=== PATIENT | male | born 1970 | race Hispanic/Latino ===

== ENCOUNTER 2024-09-20 23:18 | Inpatient (IN) | payer OTHER, SELFPAY ==
--- NOTE | 2024-09-20 22:10 | ED.GENMED ---
History of Present Illness
General
Chief Complaint: Chest Pain
Source: patient, family (Son) and ambulance crew
Exam Limitations: none
Time Seen by Provider: 09/20/24 22:09
Nursing documentation reviewed up to this point in time: agreed with
History of Present Illness
History of Present Illness:
54-year-old male with a history of GERD, smoker, occasional alcohol use who presents to the ER via EMS for evaluation after syncopal event complaining of chest pain. Patient reports that he was taking the trash out tonight when he began to feel
dizzy and had some mild substernal chest discomfort. He says that he had a brief syncopal episode. Son called EMS and on their arrival patient was complaining of continued mild chest pain 05/15. Initial EKG was concerning for some ST changes. He
received nitroglycerin and 324 mg of aspirin. He had resolution of chest pain at that point and was transported to the hospital. Here in the ER he says he is chest pain-free and feels well. He denies any shortness of breath, dizziness, nausea,
vomiting, diaphoresis. 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
typically get chest pains). He says that he does occasionally get right shoulder pains that he has attributed to arthritis. He denies any known history of cardiac issues.
Review of Systems
Review of Systems
All Other Systems: ROS reviewed and negative except as documented in HPI and ROS
Constitutional: Denies fever
Respiratory: Denies trouble breathing
Cardiac: Reports chest pain and syncope; Denies diaphoresis or palpitations
ABD/GI: Denies abdominal pain, nausea or vomiting
: Denies flank pain
Musculoskeletal: Denies edema
Neurological: Reports dizzy; Denies headache
Phy Exam
Physical Exam
Physical Exam:
General: Awake, alert, oriented x3; no acute distress
Head: Normocephalic, atraumatic
Eyes: Conjunctiva normal, sclera anicteric
Throat: Airway intact, handling secretions
Neck: Trachea midline, no JVD
Lungs: Clear to auscultation bilaterally, no wheezing, rales, rhonchi
Heart: Regular rate and rhythm, no murmurs, gallops, or rubs
Abd: Soft, non distended, nontender
Neuro: No gross deficits
Skin: no rash
Extremities: No edema in extremities, equal pulses in all extremities
Scores
Heart Failure Risk
Heart Failure Risk Score: Not Applicable
Heart Score for Chest Pain Patients
STEMI patient?: No
History: Moderately Suspicious
ECG: Significant ST-Depression
Age: >45 - <65 years
Risk Factors: 1 or 2 Risk Factors
Troponin: </= Normal Limit
Heart Score for Chest Pain Patients: 5
Heart Score Risk: 20.3% MACE over next 6 weeks
Withdrawal Assessment of Alcohol
Withdrawal Assessment Completed?: Not applicable
Course
Orders/Labs/Results
Orders:
Orders
09/20/24 21:54
Electrocardiogram (*1) Urgent
Reason for Study: Other
Other Reason for Exam: Respiratory Distress
Cardiac Monitoring- Treatment ONCE
EKG- Treatment ONCE
IV Insert/Care/Rem.- Treatment PRN
CR Chest - 2 Views Urgent
Comment:
Reason For Exam: respiratory distress
O2 Therapy [RESP] Urgent
Titrate/Wean O2 to maintain O2 sat greater than (%): 93
Special Instructions: TO MAINTAIN CONTINUOUS O2 SATS >/= 93%
Pulse Ox/cont/shift [RESP] Urgent
Quantity: 1
Special Instructions: continuous pulse ox
09/20/24 22:04
Complete Blood Count/With Diff Urgent
Comprehensive Metabolic Panel Urgent
NT-proBNP Urgent
Troponin I Urgent
09/20/24 22:12
PTT Urgent
Prothrombin Time Urgent
09/20/24 22:19
0.9% Sodium Chloride 1000 ml [Nss] 1,000 ml IV BOLUS
09/20/24 22:44
Heparin 4,000 units IV NOW STA
Pharmacy Request to Place See Dose Instructions PO NOW STA
Discontinue all Active Warfarin orders?: Yes
Nursing to Place Non Medication Order As Directed
Physician Order: PTT 6 hours after initial start of Heparin infusion
09/20/24 22:45
Heparin 26643 Units/250 ml 25,000 units in 250 ml IV PER PROTOCOL
Weight to be used for heparin protocol in kilograms (kg):: 106
Protocol:: Cardiac Tx/Acute Coronary
PTT Goal Range to be used:: PTT 73 to 111 seconds
Order type:: Initial
INITIAL Infusion Dose (UNITS/KG/hr) & then follow protocol:: 12 units/kg/hr
Infusion Dose in UNITS/hr & then follow protocol (UNITS/hr):: 1,000
INFUSION RATE in mL/hr & then follow protocol (mL/hr):: 10
PTT less than or equal to 64 seconds:: Increase rate by 200 units/hr (+ 2 mL/hr)
PTT 64.1 to 72.9 seconds:: Increase rate by 100 units/hr (+ 1 mL/hr)
PTT 73 to 111 seconds:: Target Range. No change in rate.
PTT 111.1 to 130.9 seconds:: Decrease rate by 100 units/hr (- 1 mL/hr)
PTT 131 to 199.9 seconds:: HOLD for 1 hr. Then decrease rate by 200 units/hr (- 2 mL/hr)
PTT greater than or equal to 200 seconds:: HOLD for 2 hrs & Notify Provider. Then decrease by 200 units/hr (-
2 mL/hr)
Lab follow-up:: Each change, PTT q6h until 2 consecutive are therapeutic. Then PTT
daily.
09/20/24 23:[address] See Dose Instructions IV DIRECTED
Abnormal Lab Results
09/20/24
22:04
WBC 16.3 H 10^3/uL
(4.8-10.8)
RBC 4.56 L 10^6/uL
(4.70-6.10)
MCH 32.2 H pg
(27.0-31.0)
MPV 11.3 H fL
(7.4-10.4)
Abs Immat Gran (auto) 0.2 H 10^3/uL
(0-0.05)
Absolute Neuts (auto) 12.0 H 10^3/uL
(1.4-6.5)
Absolute Monos (auto) 1.5 H 10^3/uL
(0.1-0.6)
Immature Gran % 1.4 H %
(0-0.5)
Lymphocytes % 16.0 L %
(20.5-51.1)
Sodium 134 L mmol/L
(135-145)
Glucose 137 H mg/dl
(70-99)
AST 135 H U/L
(17-59)
ALT 102 H U/L
(0-50)
Troponin I 0.094 H* ng/ml
09/20/24 22:04
09/20/24 22:04
Vital Signs
Initial and Last Documented VS:
Initial Vital Signs
Temp Pulse Resp Pulse Ox
36.7 C 86 20 97
09/20/24 21:55 09/20/24 21:55 09/20/24 21:55 09/20/24 21:55
Last Documented Vital Signs
Temp Pulse Resp Pulse Ox
36.7 C 93 20 98
09/20/24 21:55 09/20/24 21:55 09/20/24 21:55 09/20/24 22:30
MDM/Problems Addressed
Differential Diagnosis Includes:
ACS, aortic stenosis, dysrhythmia, GERD, vasovagal episode
MDM/Problems Addressed:
54-year-old male presents to the ER for evaluation after dizziness and syncope associated with chest pain. His initial prehospital EKG was concerning for some lateral ST depressions and in fact a prehospital STEMI alert was called although on
review of EKG with interventional cardiology did not meet STEMI criteria and STEMI alert was canceled. He was given aspirin and nitroglycerin prehospital and his chest pain has since resolved. His arrival EKG significantly improved with minimal
nonspecific ST changes. Bilateral IVs placed labs sent off including a CBC and a CMP, will check troponin, chest x-ray. Patient will require admission for monitoring telemetry, trending of troponin.
Labs reviewed: CBC shows leukocytosis, CMP shows marginal transaminitis. His troponin is elevated to 0.094. Vital signs remained stable, remains chest pain-free. Will initiate heparin drip with concern for NSTEMI. Case discussed with hospitalist
for admission.
Chronic conditions affecting care:
Smoking�higher risk for heart disease
*Radiology
Radiology exam reviewed: preliminary read by ED provider
*Pulse Oximetry
SaO2: 97
Oxygen Mode of Delivery: Room air
Patient hypoxic: no (97%)
*EKG
Interpreted by ED Provider?: Yes
Heart Rate: 88
Rate: normal
Rhythm: sinus
[place]: left axis deviation
Interval: normal interval
QRS Pattern: left vent hypertrophy
Ischemia: non-specific ST changes
*Critical Care Note
Total Time (30-74mins, 75-104mins- exclusive of procedures): Not Applicable
Patient Management
Discussion with other providers: Hospitalist (Discussed with hospitalist) and Tablet Making Machine Operator (Discussed at length with interventional cardiology)
Escalation/DeEscalation of care consider admission/obs:
Admission indicated
ED Attending Note
-
Portions of this chart may have been created with voice recognition software.� Occasional wrong word or��sound alike� substitutions may have occurred due to the inherent limitations of voice recognition software.
Discharge Plan
Departure
Patient Disposition: Admit
Date of Disposition: 09/20/24
Time of Disposition: 22:47
Admit to doctor: Remigio
Presentation/result/management discussed w/ accepting MD/DO: Hospitalist
Discharge Problem:
Non-ST elevation RI (NSTEMI)
Prescriptions:
No Action
Vitamin
1 dose PO DAILY PRN (Reason: pain)
Rx Instructions:
unsure of name
Interventions
Interventions:
*Risk Screen - Suicide Last Done: 09/20/24 21:55
*General Assessment Last Done: 09/20/24 21:55
*Neglect/Abuse Screening Last Done: 09/20/24 21:55
*ED- Fall Risk Assessment Last Done: 09/20/24 21:55
*ED COVID-19 Vaccine History Last Done: 09/20/24 21:55
ED- Cardiac Assessment Last Done: 09/20/24 22:30
Discharge Date and Time
Print Language: SINHALA
[2024-09-20 22:13] LABS: Hematocrit 42.8 % (39.0-52.0); Hemoglobin 14.7 g/dL (13.0-18.0); Mean Corp Hgb Conc. 34.3 g/dL (33.0-37.0); Mean Corpuscular Volume 93.9 fL (80.0-94.0); Nucleated Red Blood Cells % 0 % (-); Platelet Count 251 10^3/uL (130-400); Red Cell Dist. Width 13.5 % (11.5-14.5)
[2024-09-20 22:15] VITALS: BP 107/67
[2024-09-20 22:31] VITALS: BP 106/77
[2024-09-20 22:31] LABS: AST (SGOT) 135 U/L (17-59); Albumin 4.1 g/dl (3.5-5.0); Alkaline Phosphatase 104 U/L (38-126); Blood Urea Nitrogen 20 mg/dl (9-20); Calcium 8.9 mg/dl (8.4-10.2); Carbon Dioxide 24 mmol/L (22-30); Chloride 105 mmol/L (98-107); Glucose 137 mg/dl (70-99); Potassium 3.9 mmol/L (3.5-5.1); Sodium 134 mmol/L (135-145); Total Protein 6.3 g/dl (6.3-8.2); eGFR > 60.00
[2024-09-20 22:41] VITALS: BMI 42.8
[2024-09-20 22:41] LABS: ALT (SGPT) 102 U/L (0-50); Troponin I 0.094 ng/ml
[2024-09-20 22:50] VITALS: BP 106/77
--- NOTE | 2024-09-20 22:52 | HPS.HSE ---
Addendum entered and electronically signed by James Flood DO 09/20/24 23:50:
Patient seen and examined independently. Agree with findings and plan as set forth by VERNELL Matute.
Patient is a 54y M with no known PMH who presents to ED for evaluation after syncopal episode at home. History obtained from patient with family serving as new accounts clerk. Patient took the trash out this afternoon. He felt lightheaded / dizzy
upon entering the house and ultimately passed out. 911 was called and patient brought to the ED for further evaluation. Patient has no known PMH - but also no regular health care. He takes a medication from [place] as needed for pain - ? name. He
does report frequent heartburn / reflux symptoms.
At the time of my examination, patient has minimal R sided chest pain. No dyspnea, nausea. Not lightheaded or dizzy at rest.
Ass:
NSTEMI
Syncope secondary to the above
Abnormal LFTs
Morbid Obesity secondary to excess calories
Tobacco Use Disorder
Plan:
Admit to IVU for further evaluation and treatment.
IV heparin infusion, ASA, etc.
NTG as needed for chest pain. Consider infusion if pain increases / persists.
Follow troponin to peak. Follow serial EKG for changes.
Cardiology consult in AM for further recommendations / probable ischemic evaluation.
Check lipids, A1C, etc.
Encourage smoking cessation.
Original Note:
Family Physician
-
Family Physician:
Chief Complaint
-
right sided chest pain
History of Present Illness
54-year-old male with a history of GERD, smoker, occasional alcohol use who presents to the ER via EMS for evaluation after syncopal event complaining of chest pain. he felt lightheaded taking trash out. he passed out briefly as soon as he got into
he house. denied hitting head on the floor but he fell backwards. he noted right sided non exertional, radiating chest pain. denied sob. denied JAVED. denied fever, chills, cough,congestion. denied abdominal pain,n,v,d. denied dysuria or hematuria.
upon arrival noted to have elevated trop. His EMS EKG was concerning for significant lateral ST depressions. He was given aspirin and nitroglycerin. started on heparin drip. admitting for further managment.
Medical History
Past Medical History
Past Medical History: Reports Other
Additional Past Medical History:
GERD
Past Surgical History: Reports Other
Additional Past Surgical History:
foot surgery
Social History
Tobacco: Smoker (3-4 cigarettes' daily)
Alcohol: Other (8 drinks (richardson) wednesday and wednesday)
Drug: None
Living: With Family
Family History
Family History: Not pertinent
Allergies / Home Medications
Allergies reflects when Allergies were last updated in [facility].
Home Medications with original date entered in [facility]
Allergy/Medication List:
Allergies
Allergy/AdvReac Type Severity Reaction Status Date / Time
No Known Allergies Allergy Verified 09/20/24 22:12
Home Medications
Vitamin 1 dose PO DAILY PRN pain 09/20/24
Review of Systems
-
Constitutional: Reports No Symptoms
EENT: Reports No Symptoms
Respiratory: Reports No Symptoms
Cardiac: Reports Chest Pain
Abdomen/GI: Reports No Symptoms
: Reports No Symptoms
Musculoskeletal: Reports No Symptoms
Skin: Reports No Symptoms
Neurological: Reports No Symptoms
Endocrine: Reports No Symptoms
Hematologic/Lymphatic: Reports No Symptoms
Psych: Reports No Symptoms
Physical Exam
Vital Signs
Vital Signs
Temp Pulse Resp BP Pulse Ox
98.0 F 93 20 106/77 98
09/20/24 21:55 09/20/24 21:55 09/20/24 21:55 09/20/24 22:50 09/20/24 22:30
Physical Exam
General: Well Developed, Well Nourished and No Apparent Distress
HEENT: NormoCephalic, Moist mucous membranes and Atraumatic
Respiratory: Clear
Cardiac: S1/S2 and Regular Rhythm; No Murmur or Rub
GI: Soft, Non Tender, Non Distended and Normal Bowel Sounds; No Organomegaly
Rectal: Deferred by Provider
Musculoskeletal: No Clubbing, No Cyanosis and No Edema
Skin: No Rash
Neuro: AO x 3 and Nonfocal/grossly intact
Psych: Calm
Laboratory Results
-
09/20/24 22:04
09/20/24 22:04
Laboratory Results
Total Bilirubin 0.6 mg/dl (0.2-1.3) 09/20/24 22:04
AST 135 U/L (17-59) H 09/20/24 22:04
ALT 102 U/L (0-50) H 09/20/24 22:04
Alkaline Phosphatase 104 U/L (38-126) 09/20/24 22:04
Troponin I 0.094 ng/ml H* 09/20/24 22:04
Data Reviewed
-
Diagnostic Radiology: Report Reviewed by me
Lab Data: Labs Reviewed by me
Impression/Plan
-
#NSTEMI
-trop 0.094, trend trop
-heparin drip continued
-asa and statin
-obtain ECHO
-keep patient NPO
-cardiology consulted
-pre hospital EKG with lateral ST depression
-ER EKG with NSR
#leukocytosis likely stress reaction
-wbc 16.3, patient is afebrile, ctm
#transaminitis likely passive
-ast 135, alt 102
-denied abdominal pain
-CTm
#DVT prophylaxis
-heparin
#CODE status
-full code
[2024-09-20] MEDS: NSS 1000 IV (22:56)
[2024-09-20 23:00] VITALS: BP 116/77
[2024-09-20 23:14] LABS: INR 1.24; PT 16.2 Sec (11.4-14.6)
[2024-09-20 23:15] LABS: APTT 22.9 Sec (23.4-35.0)
[2024-09-21] VITALS (16 sets, daily range): BP systolic 94–129; BP diastolic 60–95; BMI 37.8
[2024-09-21] MEDS: HEPARIN 4000 UNITS IV (00:14)
[2024-09-21] MEDS: HEPARIN 25000 UNITS/250 ML IV (00:15)
--- NOTE | 2024-09-21 01:00 | PTCARENOTE ---
Pt arrived to rm [id number] from ED, ambulates independently. No pain per pt. BP 97/75, HR 75 - asymptomatic. Son at bedside to assist with translating admission questions. Pt oriented to room, call verde in reach. POC reviewed with pt and son at
bedside.
[2024-09-21] MEDS: LIPITOR 40 MG PO ×2 (01:09→19:08)
[2024-09-21 01:48] LABS: Troponin I 1.340 ng/ml
--- NOTE | 2024-09-21 02:00 | PTCARENOTE ---
Pt's troponin level increased from 0.094 to 1.340, asymptomatic. MEMBERSHIP COUNSELOR Andreia notified, no further orders.
[2024-09-21 05:21] LABS: Hematocrit 41.1 % (39.0-52.0); Hemoglobin 14.2 g/dL (13.0-18.0); Mean Corp Hgb Conc. 34.5 g/dL (33.0-37.0); Mean Corpuscular Volume 95.4 fL (80.0-94.0); Platelet Count 222 10^3/uL (130-400); Red Cell Dist. Width 13.8 % (11.5-14.5)
[2024-09-21 05:32] LABS: APTT 35.0 Sec (23.4-35.0)
[2024-09-21 05:37] LABS: Troponin I 1.980 ng/ml
[2024-09-21 05:44] LABS: HDL Cholesterol 37 mg/dl; LDL Cholesterol, Calculated 101 mg/dl; Very Low Density Lipoprotein 35 mg/dl (0-30)
--- NOTE | 2024-09-21 06:00 | PTCARENOTE ---
Pt's troponin increased from 1.34 to 1.98, asymptomatic. PAWAN Boswell notified, orders placed for troponin draws at 1015 and 1615.
[2024-09-21] MEDS: LOW STRENGTH ASPIRIN 81 MG PO (07:34)
[2024-09-21] MEDS: PROTONIX 40 MG PO (07:34)
--- NOTE | 2024-09-21 07:51 | CON.CAR ---
Addendum entered and electronically signed by Bill Langford MD 09/21/24 10:12:
I saw and examined the patient.
The INTERNATIONAL MARKETING COORDINATOR's note was reviewed and I agree with the note.
54-year-old Ecuadorean-speaking male (24-year-old daughter speaks Thai well and is at bedside helping with communication) patient has a history of smoking and a family history of coronary artery disease yesterday had some heartburn symptoms which
was a mild discomfort somewhat of a pressure sensation he took some Tums initially thought there was some relief after 10 minutes then had some recurrence. He went to take out the garbage outside and became lightheaded and dizzy he sat down outside
to recover for a bit and then when he went back inside was still feeling dizzy like he might pass out he sat down on the couch symptoms did not improve so he went to get up to go to the bedroom and had a syncopal event. He woke up and had lost
control of his urine so he took a shower before the ambulance arrived. Denies having chest discomfort in the ambulance and denies having chest discomfort since arrival. Currently chest pain-free. Peak troponin 1.9. Exam notable for systolic
murmur. Echocardiogram shows normal left ventricular function and severe aortic stenosis. Suspected bicuspid valve and mean gradient of 69 mmHg. Presentation with syncope raises concern for symptomatic severe aortic stenosis. With chest
discomfort and abnormal troponin patient may also have obstructive coronary artery disease. Reviewed findings with patient and his daughter. Cardiac catheterization recommended.
- Additional recommendations based on results.
Original Note:
Consultation
Consultation Request
Date/Time Consultation Requested: 09/21/242
Date/Time Consultation Performed: 09/21/24 0750
Requesting Provider: Tran Parry
Performing Provider: Chasity MATT for Dr. Langford
Reason for Consultation: NSTEMI
Medical History
-
Chief Complaint: syncope
History of Present Illness:
54 y/o male with acid reflux on OTC medication and smoking who is here for evaluation after he had an episode of syncope yesterday. Briefly, he was laying in bed and had some 'heartburn', then realized he had to take out the trash. He went to take
out the trash and felt dizzy when he was walking in. He sat down, but then family suggested he go lay and when he got up again to go lay and started walking he lost consciousness and was incontinent of urine. EMS was alerted. He does admit that he
had the heartburn feeling during his walking. He gets heartburn daily, but mostly with spicy meals and takes an OTC antacid. He was given full dose aspirin and nitro in ER. His son, who is translating for us, reports that he had chest pain until he
fell asleep, but he woke up this AM with no CP. He is CP free at the time of my assessment. He thinks he could have been dehydrated yesterday. He does not typically see medical providers, so no other known medical history.
Social History
Tobacco: Smoker (3 cigarettes per day)
Alcohol: Other (8 coronas on Wednesday, 3 on Wednesday, doesn't drink the rest of the week)
Living: With Family
Family History
Family History: Other (Mom and dad had open heart surgeries in their 60's, details unknown.)
Allergies / Home Medications
Allergy/AdvReac Type Severity Reaction Status Date / Time
No Known Allergies Allergy Verified 09/20/24 22:12
OTC antacid- details unknown.
�Medication �Instructions �Recorded �Confirmed �Type
Vitamin 1 dose PO DAILY PRN pain 09/20/24 09/20/24 History
Review of Systems
-
History Source: Patient
All other systems: Negative unless noted
Cardiac: Chest Pain and Syncope
Neurological: Dizzy
Physical Exam
Vital Signs
Temp Pulse Resp BP Pulse Ox
97.2 F 66 16 102/68 96
09/21/24 04:43 09/21/24 04:43 09/21/24 04:43 09/21/24 04:43 09/21/24 04:43
Lab Results
09/21/24 05:02
09/20/24 22:04
Troponin I 1.980 ng/ml H* D 09/21/24 04:33
Ofx-Q-[id number] Pept 558 pg/ml 09/20/24 22:04
Physical Exam
General: Well Developed, Well Nourished and No Apparent Distress
HEENT: Normocephalic and Anicteric
Respiratory: Clear and Non Labored Respirations
Cardiac: Regular Rhythm and Murmur (III/ systolic)
Musculoskeletal: No Edema
Skin: Warm and Dry
Neuro: AO x 3
Psych: Calm
Impression / Plan
-
NSTEMI:
-this diagnosis is threat to life
-CP free at present
-Per ER notes, received full dose aspirin via EMS. Continue ASA, statin.
-continue IV heparin, which requires intensive monitoring
-obtain echo (being done now)
-trend trops to peak. Currently 1.98. EKGs with lateral ST/T wave abnormalities.
-HGBA1C is pending
-cardiac cath today, which we discussed
Syncope:
-checking echo
-follow tele
-CAD w/u as above
Dyslipidemia:
-LDL 101
-statin initiated
Smoking:
-needs education on total cessation this admit
ETOH use:
-8 beers on Wednesday, 3 on Wednesday, none the rest of the week
-would benefit from significant decrease or preferably elimination (also with abnormal LFT's and elevated triglycerides)- needs education this admit
GERD:
-PPI ordered
Data Reviewed
-
EKG: Tracing Personally Visualized and interpreted (NSR 66 BPM, IC RBBB, lateral T wave inversions)
Radiology: Report Reviewed by me (CXR: Mildly decreased lung volumes without focal airspace disease or overt pulmonary edema.)
Medical Tests (Nuc Med, Echo etc): Other (echo ordered and pending)
Labs: Labs Reviewed by me
--- NOTE | 2024-09-21 08:15 | W.PN.HOSP.TC ---
Today's Communication/Plan
-
ACS protocol. Plan for cardiac cath
Assessment / Plan
Assessment / Plan
Physical exam:
General: Acutely ill
HEENT: Normocephalic, Atraumatic and Moist Mucous Membranes
Respiratory: Clear to Auscultation; Negative Wheezes, Rales or Rhonchi
Cardiac: Regular Rhythm and S1/S2, systolic ejection murmur
GI: Soft, Nontender and Nondistended
Musculoskeletal: No Clubbing, No Cyanosis and No Edema
Neuro: Awake, Alert and Oriented
Psych: Calm
A/P:
Acute non-STEMI:
Continue heparin drip
Aspirin and statins
Troponin peaking at 1.98 so far but continue to monitor
Plan for cardiac catheterization today
Cardiology consult appreciated
Discussed with daughter at bedside
Severe arctic stenosis:
Cardiac cath
Echocardiogram with severe mean gradient 69 mmHg, normal EF 55 to 60%
Likely will need replacement
Syncope:
Concerning if related to
Cardiac monitoring
Dyslipidemia:
LDL 101
Prediabetes mellitus:
Hemoglobin A1c 5.9
Alcohol use disorder:
Monitor for signs of withdrawal but there is none so far
Elevated LFTs:
Drinks alcohol only on weekends
Trend
Will reassess if further workup required
Reactive leukocytosis:
Trend
GERD:
Started on PPI
DVT prophylaxis:
Heparin drip
CODE STATUS:
Full code
Total time spent on today's encounter was 52 minutes which included time spent in counseling the patient/family regarding diagnosis and treatment plan as listed above, goals of care, and symptom management. Case was discussed with nursing staff,
specialists, and care coordinators/case management. All labs and imaging personally reviewed by me. Remainder the time spent in detailed review of previous records, lab data, imaging, and other medical provider documentation.
Anticipated Discharge: 24 - 48 hours
Subjective/Interval History
-
Date of Service: September 21, 2024
Patient denies chest pain this morning. No shortness of breath at rest. He attributes all his exertional symptoms mainly to 'drinking red bull and heat outside'-> I explained to him the cardiac issues that we are facing.
Objective Data
-
Labs:
Laboratory Results
09/20/24 09/20/24 09/21/24
22:04 22:55 05:02
WBC 16.3 H 16.7 H
Hgb 14.7 14.2
Hct 42.8 41.1
Plt Count 251 222
PT 16.2 H
INR 1.24
APTT 22.9 L 35.0
Sodium 134 L
Potassium 3.9
Chloride 105
Carbon Dioxide 24
BUN 20
Creatinine 0.7
Glucose 137 H
Calcium 8.9
Total Bilirubin 0.6
AST 135 H
ALT 102 H
Alkaline Phosphatase 104
09/21/24 09/21/24
06:00 12:00
WBC
Hgb
Hct
Plt Count
PT
INR
APTT Cancelled Pending
Sodium
Potassium
Chloride
Carbon Dioxide
BUN
Creatinine
Glucose
Calcium
Total Bilirubin
AST
ALT
Alkaline Phosphatase
Vital Signs:
Vital Signs
Temp Pulse Resp BP Pulse Ox
97.2 F 66 16 102/68 96
09/21/24 04:43 09/21/24 04:43 09/21/24 04:43 09/21/24 04:43 09/21/24 04:43
[2024-09-21 10:04] LABS: Glycohemoglobin (HgbA1c) 5.9 % (4.0-5.6)
[2024-09-21 12:21] LABS: APTT 36.9 Sec (23.4-35.0)
[2024-09-21 12:33] LABS: Troponin I 1.340 ng/ml
--- NOTE | 2024-09-21 12:52 | CM ---
Initial assessment completed. Spoke w/ patient's son, Alexx. Patient is a 54y M with no known PMH who presents to ED for evaluation after syncopal episode at home.
Patient resides w/ his sister in a single story home, 1 step to enter. Patient is independent w/ ambulation, no device required. Independent w/ ADLs, no DME. No SNF/HC hx.
Address, point of contact verified
Patient is currently without insurance and a PCP at this time
Plan: CM will cont to follow for d/c planning
--- NOTE | 2024-09-21 15:56 | PTCARENOTE ---
Pt was brought to recovery room on stretcher, RA, tele box, Heparin Gtt at 1400 units via LH #22. Daughter and son at the bedside interpreting: pt denies chest pain. VS on monitor: HR NSR 69, BP114/79, POX 95% RA, RR 20. Pedal pulses +1's bilateral.
Normal Allens testing BL wrists. Groins shaved. Cath consent obtained by Dr Vargas. No addl IVF's or aspirin needed per Shona MACHINE BRUSH MAKER.
--- NOTE | 2024-09-21 16:08 | PTCARENOTE ---
Pt taken to cath lab radiology technician at this time. Report given to Meli QUISPE.
--- NOTE | 2024-09-21 17:03 | ITS.CL.CATH ---
Systems Engineer - Catheterization
Cardiac Catheterization
Procedure Report:
LEFT HEART CATHETERIZATION
Date of Procedure: September 21, 2024
Referring: Bill Langford MD
PROCEDURES:
1. Coronary angiogram.
2. Moderate sedation.
INDICATION: Severe bicuspid aortic stenosis
ACCESS: Right radial artery, 6Fr. sheath, under US guidance.
HEMODYNAMICS : (mmHg)
AO (s/d) : 136/97
CORONARY FINDINGS
Dominance: Right
Left Main Trunk (LMT): Large caliber vessel that gives rise to the LAD and LCx branches and is free of angiographic disease.
Left Anterior Descending Artery (LAD): Large caliber vessel that gives off 2 major diagonal branches as it courses along the anterior inter-ventricular groove before wrapping around the cardiac apex. There is mild diffuse atherosclerotic plaque.
Left Circumflex Artery (LCx): Large caliber vessel that gives off 2 major obtuse marginal (OM) branches as it courses along the atrio-ventricular (AV) groove. There is mild diffuse atherosclerotic plaque.
Right Coronary Artery (RCA): Large caliber dominant vessel that gives rise to the posterior descending artery (RPDA) and postero-lateral ventricular (RPLV) branches distally. There is mild diffuse atherosclerotic plaque.
SEDATION: 67 minutes of procedural sedation was utilized. IV Midazolam and IV Fentanyl were administered. An independent medical record clerk was present to assist with and help manage the patient's level of consciousness and physiologic status.
RADIATION SUMMARY: Fluoro Time (min): 2.3, Dose (mGy): 309.14, DAP (Gy.cm2) : 26.14
Closure Device: There were no immediate intra-procedural complications. The sheath was pulled in the builder's labourer and a vascular-band applied to the right wrist for radial artery hemostasis using the patent hemostasis technique.
CONCLUSIONS
1. No obstructive CAD.
RECOMMENDATIONS
1. Wean radial band per protocol. Monitor right hand perfusion and for bleeding from the radial site following removal of the vascular-band following trans-radial access.
2. Continue aggressive medical therapy and risk factor modification for secondary CAD prevention.
3. Hydrate with normal saline to mitigate the risk of contrast-induced acute kidney injury.
Copy to: Bill Langford MD
Gladis Vargas MD, FACC, [facility]
--- NOTE | 2024-09-21 17:54 | PTCARENOTE ---
Received pt post cath. Right radial band inflated and intact w/ pulse ox 95 % on right thumb. VSS. Pt's son at bedside interpreting for pt. Pt denies any chest pain or sob. Discussed post cath orders. Will monitor.
--- NOTE | 2024-09-21 21:25 | PTCARENOTE ---
Pt rec'd at change of shift with son at bedside. right radial band removed at 2100. site clean and dry, no ecchymosis or hematoma noted. Good radial pulse. Pt aware of limb restrictions. assisted to bathroom to void. gait steady.
[2024-09-22] VITALS (8 sets, daily range): BP systolic 84–139; BP diastolic 59–82; BMI 37.1
[2024-09-22 04:46] LABS: Hematocrit 44.4 % (39.0-52.0); Hemoglobin 14.8 g/dL (13.0-18.0); Mean Corp Hgb Conc. 33.3 g/dL (33.0-37.0); Mean Corpuscular Volume 96.1 fL (80.0-94.0); Nucleated Red Blood Cells % 0 % (-); Platelet Count 215 10^3/uL (130-400); Red Cell Dist. Width 13.9 % (11.5-14.5)
[2024-09-22 04:59] LABS: INR 1.16; PT 15.3 Sec (11.4-14.6)
[2024-09-22 05:09] LABS: ALT (SGPT) 92 U/L (0-50); AST (SGOT) 41 U/L (17-59); Albumin 3.6 g/dl (3.5-5.0); Alkaline Phosphatase 79 U/L (38-126); Blood Urea Nitrogen 24 mg/dl (9-20); Calcium 8.7 mg/dl (8.4-10.2); Carbon Dioxide 24 mmol/L (22-30); Chloride 107 mmol/L (98-107); Estimated Creatinine Clearance > 125 ml/min; Glucose 81 mg/dl (70-99); Magnesium 2.3 mg/dl (1.6-2.3); Potassium 4.3 mmol/L (3.5-5.1); Sodium 135 mmol/L (135-145); Total Protein 5.8 g/dl (6.3-8.2); eGFR > 60.00
--- NOTE | 2024-09-22 07:24 | W.PN.CD ---
Today's Communication / Plan
-
Patient presented with syncope and is noted to have severe aortic stenosis
- Information communicated to cardiothoracic surgery. Plan for CT surgery consult today
Impression / Plan
-
Severe aortic stenosis.
- Mean gradient 69
- Suspect bicuspid aortic valve
- No evidence of obstructive coronary disease by cardiac catheterization
- Information communicated to cardiothoracic surgery. Plan for CT surgery consult today
.
Chest Pain
- May be due to severe aortic stenosis also some of his symptoms could be related to GERD.
.
Troponin elevation
- Non-CA troponin elevation likely related to severe aortic stenosis and syncope
Syncope:
- In setting of severe aortic stenosis
Dyslipidemia:
-LDL 101
-statin initiated
Smoking:
- Recommends patient's quit.
GERD:
-PPI ordered
Physical Exam
Vital Signs/Labs
Vital Signs
Temp Pulse Resp BP Pulse Ox
97.9 F 54 17 111/72 97
09/22/24 03:30 09/22/24 05:30 09/22/24 03:30 09/22/24 04:22 09/22/24 03:30
09/21/24 09/22/24 09/23/24
06:59 06:59 06:59
Actual Weight 103.079 kg 101 kg
09/22/24 04:31
09/22/24 04:31
PT 15.3 Sec (11.4-14.6) H 09/22/24 04:31
INR 1.16 09/22/24 04:31
APTT Cancelled 09/21/24 18:40
Magnesium 2.3 mg/dl (1.6-2.3) 09/22/24 04:31
Triglycerides 178 mg/dl (10-149) H 09/21/24 05:02
LDL Cholesterol, Calc 101 mg/dl 09/21/24 05:02
VLDL Cholesterol, Calc 35 mg/dl (0-30) H 09/21/24 05:02
HDL Cholesterol 37 mg/dl 09/21/24 05:02
09/20/24
22:04
Gsl-S-Hjfbvntjgbf Pept 558
LAB Results
09/20/24 09/21/24 09/21/24
22:04 01:02 04:33
Troponin I 0.094 H* 1.340 H* D 1.980 H* D
09/21/24 09/21/24 09/21/24
10:45 11:46 16:15
Troponin I Cancelled 1.340 H* D Cancelled
Physical Exam
Constitutional: No acute distress
Cardiovascular: Rhythm & rate is regular
Respiratory: Lungs clear to auscul. and Crackles Absent
GI: Soft
Neuro/Psych: Alert
Data Reviewed
-
Date of Service: September 22, 2024
Medical Decision Making: External Notes
Echo: Report Reviewed by me
Medical Tests (PFT, Pathology etc): Report Reviewed by me
Labs: Labs Reviewed by me
--- NOTE | 2024-09-22 09:00 | CONSULT.CT ---
Consultation
-
Date/Time Consultation Performed: 09/22/24 0900
Requesting Provider: Bill Langford MD
Performing Provider: Martha Kern PA-C for Maxwell Ridley MD
Reason for Consultation: Aortic Stenosis
Patient History
History of Present Illness
Patient seen and examined in the presence of his son Oleksandr, who acted as legal editor.
54 y/o Georgian speaking male presented to ED via ambulance for evaluation of syncope. Pt was taking out the trash 2 nights ago and began to have pain in his chest which he attributed to heart burn. He does have a history of heartburn and frequently
uses an OTC medication. He tried taking Tums, without relief. He began to experience lightheadedness and had a syncopal episode. Did not hit his head, but was incontinent of urine. When he regained consciousness, he had complete recall of prior
events. He has not had any recurrence of chest pain since the initial episode. Pt reports increased fatigue for a few days prior to the incident, but thought it was due to the heat. He has not had prior episodes of chest pain. Denies fever, chills,
diaphoresis, cough, SOB, n/v.
In the ED, troponin was 0.094 (peaked at 1.98 yesterday morning). Echo showed EF 55-60% and severe aortic stenosis with suspected bicuspid valve. JARED 0.5cm2, with peak gradient 115mmHg and mean gradient 69mmHg. Mild aortic regurgitation. Cardiac
catheterization yesterday evening showed severe bicuspid aortic stenosis and no obstructive CAD.
Past Medical History
- HLD, but does not see a PCP regularly
- GERD
Past Surgical History
- Left lower leg surgery from trauma, has pins
Family History
Family Medical History: Other (Both parents with hx of CABG)
Social History
Alcohol: Other (8 beers on Wednesday)
Drug: None
Tobacco: Smoker (3 cigarettes daily)
Living: With Family
Employment: Employed
Allergies
Allergy/AdvReac Type Severity Reaction Status Date / Time
No Known Allergies Allergy Verified 09/20/24 22:12
Home Medications
�Medication �Instructions �Recorded �Confirmed �Type
Vitamin 1 dose PO DAILY PRN pain 09/20/24 09/20/24 History
Review of Systems
-
History Source: Patient and Family (prasad Leggett)
General: Reports Fatigue; Denies Fever or Chills
Respiratory: Denies SOB, VAN or Cough
Cardiac: Reports Chest Pain; Denies Nausea, Vomiting or Diaphoresis
Abdomen/GI: Reports Reflux; Denies Diarrhea or Constipation
: Denies No Symptoms
Musculoskeletal: Denies No Symptoms
Neurological: Reports Syncope and Dizzy
Vascular: Denies No Symptoms
Physical Exam
Vital Signs
Temp 97.8 F 09/22/24 07:50
Temp route: Oral 09/22/24 07:50
Pulse 62 09/22/24 08:15
Rhythm: Normal sinus rhythm 09/22/24 08:00
With- Bundle Branch Block Confi 09/22/24 08:00
Resp Rate 20 09/22/24 07:50
Blood pressure 103/65 09/22/24 07:50
Blood pressure extremity used: Right upper arm 09/22/24 07:50
Position: Lying 09/22/24 07:50
MAP (cuff-Ousmane Monitor) 77 09/22/24 07:50
SaO2 97 09/22/24 07:50
Nasal Cannula flow liters per minute 2 09/20/24 22:30
Oxygen Mode of Delivery Room air 09/22/24 08:00
Acceptable pain level during hospitalization? 0 09/20/24 21:55
Can the patient verbally communicate their pain? Yes 09/21/24 08:05
Pain scale ratin 09/21/24 16:57
Actual Weight 222 lb 10.67 oz 09/22/24 04:55
Body Mass Index (BMI) 37.1 09/22/24 04:55
Labs
09/22/24 04:31
09/22/24 04:31
PT 15.3 Sec (11.4-14.6) H 09/22/24 04:31
APTT Cancelled 09/21/24 18:40
Hemoglobin A1c 5.9 % (4.0-5.6) H 09/21/24 05:02
Troponin I Cancelled 09/21/24 16:15
Lzs-S-Nvcqznppeof Pept 558 pg/ml 09/20/24 22:04
Exam
General: Well Developed, Well Nourished and No Apparent Distress
HEENT: Normocephalic, Moist Mucous Membranes, Atraumatic and PERRLA
Neck: Negative JVD, Carotid Bruit or Mass
Respiratory: Clear; Negative Wheezes or Rhonchi
Cardiac: Regular Rhythm and Murmur (III/ PAWEL)
GI: Soft and Non Tender
Skin: Warm and Dry
Neuro: AO x 3
Extremities: Pulses (2+ DP/PD pulses); Negative Lower Level Edema
Assessment / Plan
-
Severe Aortic Stenosis
- good candidate for surgical AVR
- will initiate pre-operative evaluation, to include bloodwork, dental evaluation, carotid ultrasound, CTA chest, PFTs
- Plan for OR next week, pending testing results
NSTEMI
- Peak troponin 1.98
- No obstructive CAD by cath
- troponin elevation likely related to severe aortic stenosis
HLD
- LDL 101
- Started on statin
GERD
- frequent use of TUMS at home
- will start on daily PPI
Discussed with Dr. Ridley.
[2024-09-22] MEDS: LOW STRENGTH ASPIRIN 81 MG PO (09:03)
[2024-09-22] MEDS: PROTONIX 40 MG PO (09:03)
--- NOTE | 2024-09-22 10:03 | W.PN.UPDATE ---
Update Note
Progress Note Update
CARDIAC SURGERY ATTENDING:
It was my pleasure to meet with Mr. Chilango Gaston and his son and daughter at his bedside today. Full surgical consultation to follow. Briefly, he is a very pleasant 54-year-old Bahamian-speaking gentleman who presented to our institution on
09/20/2024 after becoming lightheaded/dizzy and experiencing a syncopal episode. His workup demonstrated a severe to critically narrowed aortic valve with peak/mean gradients of 115/69 mmHg respectively with a calculated JARED of 0.5. He has mild
associated aortic insufficiency. His LVEF is preserved at 55 to 60% without any regional wall motion abnormalities. He underwent cardiac catheterization on 09/21/2024 that demonstrated no obstructive CAD. He had a mild non-NC troponin elevation to
a peak of 1.98.
He will benefit from surgical aortic valve replacement. I had an initial discussion with this patient and his family who graciously assisted in translation. We reviewed his aortic valve pathology, the proposed operative intervention, the
associated operative risks (including, but not limited to, , stroke, NC, arrhythmia, PPM requirement [slightly elevated given pre-existing incomplete right bundle branch block], PNA, JESSICA/F, bleeding, and infection), discussed expected and
hospital postprocedural course, and reviewed the expected outpatient recovery. All questions were answered to the best of my ability. We discussed the natural history of structural valve deterioration and the differences between biologic and
mechanical replacements. At present, the patient is leaning towards a biologic AVR. The patient and his family are agreeable to proceed.
I have ordered a SAVR CTA chest for procedural planning, panelipse/dental eval, carotid ultrasound assessment, and standard preadmission testing including PFTs. It is my hope to proceed to the OR this coming 09/27/2024 for hopefully
minimally-invasive SAVR.
Thank you for the opportunity precipitate in the care of this kind gentleman.
Please call with any questions or concerns.
Maxwell Ridley MD
[phone]
--- NOTE | 2024-09-22 10:11 | CM ---
Reviewed chart. Mr. Quintanilla was transferred to IVU.. Met with Mr. Quintanilla and his family to review discharge plans. He states prior to admission he resdies with his parents in a one story home with two steps to enter. He states prior to admission he
was independent with ambulation and adls. He states he does not any DME in the home. He states he currently does not have any health insurance. [facility] has been consulted to assist with Medical Assistance application. Medical work-up in progress.
The discharge plan is to return home with his family when medically stable.
--- NOTE | 2024-09-22 12:14 | W.PN.HOSP.TC ---
Today's Communication/Plan
-
CT surgery eval.
Assessment / Plan
Assessment / Plan
Physical exam:
General: Acutely ill
HEENT: Normocephalic, Atraumatic and Moist Mucous Membranes
Respiratory: Clear to Auscultation; Negative Wheezes, Rales or Rhonchi
Cardiac: Regular Rhythm and S1/S2, systolic ejection murmur
GI: Soft, Nontender and Nondistended
Musculoskeletal: No Clubbing, No Cyanosis and No Edema
Neuro: Awake, Alert and Oriented
Psych: Calm
A/P:
Severe arctic stenosis:
Cardiac cath and echocardiogram reviewed
Echocardiogram with severe mean gradient 69 mmHg, normal EF 55 to 60%
Cardiothoracic surgery consult
Appreciated cardiology
Discussed with family at bedside
Syncope:
Likely related to
Cardiac monitoring
Ruled out Non-STEMI and elevated troponin related to non-ischemic myocardial injury.
Dyslipidemia:
LDL 101
Prediabetes mellitus:
Hemoglobin A1c 5.9
Alcohol use disorder:
Monitor for signs of withdrawal but there is none so far
Elevated LFTs:
Drinks alcohol only on weekends
Trend
Will reassess if further workup required
Reactive leukocytosis:
Trend
GERD:
Started on PPI
DVT prophylaxis:
Lovenox SQ
CODE STATUS:
Full code
Total time spent on today's encounter was 52 minutes which included time spent in counseling the patient/family regarding diagnosis and treatment plan as listed above, goals of care, and symptom management. Case was discussed with nursing staff,
specialists, and care coordinators/case management. All labs and imaging personally reviewed by me. Remainder the time spent in detailed review of previous records, lab data, imaging, and other medical provider documentation.
Anticipated Discharge: > 48 hours
Subjective/Interval History
-
Date of Service: September 22, 2024
Patient denies chest pain or shortness of breath today.
Objective Data
-
Labs:
Laboratory Results
09/22/24
04:31
WBC 11.6 H
Hgb 14.8
Hct 44.4
Plt Count 215
PT 15.3 H
INR 1.16
Sodium 135
Potassium 4.3
Chloride 107
Carbon Dioxide 24
BUN 24 H
Creatinine 0.7
Glucose 81
Calcium 8.7
Total Bilirubin 0.9
AST 41
ALT 92 H
Alkaline Phosphatase 79
Vital Signs:
Vital Signs
Temp Pulse Resp BP Pulse Ox
97.9 F 72 20 98/65 96
09/22/24 11:10 09/22/24 11:15 09/22/24 11:10 09/22/24 11:09 09/22/24 11:10
--- NOTE | 2024-09-22 15:57 | W.PN.UPDATE ---
Update Note
Progress Note Update
STS RISK SCORE
Procedure Type:�Isolated AVR
Perioperative Outcome Estimate %
Operative Mortality 1.31%
Morbidity & Mortality 8.02%
Stroke 0.681%
Renal Failure 0.962%
Reoperation 3.03%
Prolonged Ventilation 4.3%
Deep Sternal Wound Infection 0.202%
Long Hospital Stay (>14 days) 3.04%
Short Hospital Stay (<6 days)* 59%
Clinical Summary
Planned Surgery: Isolated AVR, Urgent, First cardiovascular surgery
Demographics: 54 year old, male, 101kg, 165cm, BMI: 37.1 kg/m�
Lab Values: Creatinine: 0.7 mg/dL, Hematocrit: 44.4%, WBC Count: 11.6 10�/�L, Platelet Count: 307863 cells/�L
Substance Abuse: Current smoker, Alcohol use: >=8 drinks/week
Risk Factors / Comorbidities: Family Hx of CAD
Cardiac Status: Acute and chronic heart failure, NYHA Class II, Ejection Fraction = 57%
Coronary Artery Disease: No coronary symptoms
Valve Disease: Aortic Stenosis, Mild AR, Mild MR, Trivial/Trace TR
[2024-09-22] MEDS: LIPITOR 40 MG PO (17:29)
[2024-09-22] MEDS: LOVENOX 40 MG SC (17:29)
--- NOTE | 2024-09-22 23:18 | PTCARENOTE ---
Patient received at change of shift sitting at the edge of the bed. Right radial puncture site MOISÉS, radial pulse palpable. Patient denies pain. Sinus rhythm on telemetry. Oxygen saturation 99% on room air. Plan of care discussed. Family at bedside.
Call verde within reach. Care ongoing.
[2024-09-23 03:25] VITALS: BP 114/63
[2024-09-23 03:30] VITALS: BMI 36.7
[2024-09-23 03:48] LABS: Hematocrit 45.6 % (39.0-52.0); Hemoglobin 15.4 g/dL (13.0-18.0); Mean Corp Hgb Conc. 33.8 g/dL (33.0-37.0); Mean Corpuscular Volume 95.4 fL (80.0-94.0); Platelet Count 213 10^3/uL (130-400); Red Cell Dist. Width 13.2 % (11.5-14.5)
[2024-09-23 03:53] LABS: INR 1.19; PT 15.4 Sec (11.4-14.6)
[2024-09-23 03:54] LABS: APTT 29.3 Sec (23.4-35.0)
[2024-09-23 04:03] LABS: ALT (SGPT) 71 U/L (0-50); AST (SGOT) 28 U/L (17-59); Albumin 3.7 g/dl (3.5-5.0); Alkaline Phosphatase 100 U/L (38-126); Blood Urea Nitrogen 18 mg/dl (9-20); Calcium 8.7 mg/dl (8.4-10.2); Carbon Dioxide 23 mmol/L (22-30); Chloride 108 mmol/L (98-107); Estimated Creatinine Clearance > 125 ml/min; Glucose 106 mg/dl (70-99); Potassium 4.3 mmol/L (3.5-5.1); Sodium 136 mmol/L (135-145); Total Protein 5.9 g/dl (6.3-8.2); eGFR > 60.00
[2024-09-23 05:16] LABS: B.E. -1.0 mmol/L; HCO3 23.5 mmol/L (21-28); O2 Saturation % 96.7 % (94-98); PCO2 38 mmHg (35-48); PO2 75 mmHg (83-108)
[2024-09-23 08:25] VITALS: BP 131/88
[2024-09-23] MEDS: LOW STRENGTH ASPIRIN 81 MG PO (09:12)
[2024-09-23] MEDS: PROTONIX 40 MG PO (09:12)
[2024-09-23 09:31] LABS: Urine Character Clear (Clear)
--- NOTE | 2024-09-23 09:34 | W.PN.CD ---
Today's Communication / Plan
-
Continue assessment for CABG AVR
Impression / Plan
-
Severe aortic stenosis.
- Mean gradient 69
- Suspect bicuspid aortic valve
- No evidence of obstructive coronary disease by cardiac catheterization
- Patient evaluated by Dr. Ridley from CT surgery. I reviewed issues with him today. Plan is for CABG and AVR next week. Patient having CT scan to further review anatomy and sizing. Also decision is being made regarding type of AVR try to take
in account all the variables including size of valves and additional planning for future procedures also patient. 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
.
Chest Pain. No obstructive coronary disease by recent catheterization. Currently chest pain-free. Would continue treatment for GERD
.
Troponin elevation
- Non-GA troponin elevation likely related to severe aortic stenosis and syncope
Syncope:
- In setting of severe aortic stenosis
Dyslipidemia:
-LDL 101
-statin initiated
Smoking:
- Recommends patient's quit.
GERD:
-PPI ordered
Physical Exam
Vital Signs/Labs
Vital Signs
Temp Pulse Resp BP Pulse Ox
98.2 F 53 18 114/63 98
09/23/24 08:21 09/23/24 06:00 09/23/24 08:21 09/23/24 03:25 09/23/24 08:21
09/22/24 09/23/24 09/24/24
06:59 06:59 06:59
Actual Weight 101 kg 100 kg
09/23/24 03:29
09/23/24 03:29
PT 15.4 Sec (11.4-14.6) H 09/23/24 03:29
INR 1.19 09/23/24 03:29
APTT 29.3 Sec (23.4-35.0) 09/23/24 03:29
Magnesium 2.3 mg/dl (1.6-2.3) 09/22/24 04:31
Triglycerides 178 mg/dl (10-149) H 09/21/24 05:02
LDL Cholesterol, Calc 101 mg/dl 09/21/24 05:02
VLDL Cholesterol, Calc 35 mg/dl (0-30) H 09/21/24 05:02
HDL Cholesterol 37 mg/dl 09/21/24 05:02
09/20/24
22:04
Ldf-W-Memflqzszup Pept 558
LAB Results
09/20/24 09/21/24 09/21/24
22:04 01:02 04:33
Troponin I 0.094 H* 1.340 H* D 1.980 H* D
09/21/24 09/21/24 09/21/24
10:45 11:46 16:15
Troponin I Cancelled 1.340 H* D Cancelled
Physical Exam
Constitutional: No acute distress
Cardiovascular: Rhythm & rate is regular
GI: Soft
Neuro/Psych: Alert and Oriented
Data Reviewed
-
Date of Service: September 23, 2024
Medical Decision Making: Reviewed Test Results
Medical Tests (PFT, Pathology etc): Discussed with Patient
[2024-09-23 09:46] LABS: Urine Squamous Cell 0-2 /LPF (Few); Urine White Cell 0-2 /HPF (0-5)
--- NOTE | 2024-09-23 10:00 | PTCARENOTE ---
received patient this am in bed, easily awaken. patient speaks minimal Polish, son and daughter at bedside helping with translation. monitor shows NSR, VSS. right radial dsg. D/I, distal pulse palpable. U/A obtained and sent to lab . PFT's are
being completed at bedside.
--- NOTE | 2024-09-23 10:16 | W.PN.HOSP.TC ---
Today's Communication/Plan
-
See plan
Assessment / Plan
Assessment / Plan
Physical exam:
General: Acutely ill
HEENT: Normocephalic, Atraumatic and Moist Mucous Membranes
Respiratory: Clear to Auscultation; Negative Wheezes, Rales or Rhonchi
Cardiac: Regular Rhythm and S1/S2, systolic ejection murmur
GI: Soft, Nontender and Nondistended
Musculoskeletal: No Clubbing, No Cyanosis and No Edema
Neuro: Awake, Alert and Oriented
Psych: Calm
A/P:
Severe arctic stenosis:
Cardiac cath and echocardiogram reviewed
Echocardiogram with severe mean gradient 69 mmHg, normal EF 55 to 60%
Cardiothoracic surgery consult
Appreciated cardiology
Discussed with family at bedside
Syncope:
Likely related to
Cardiac monitoring
Ruled out Non-STEMI and elevated troponin related to non-ischemic myocardial injury.
Dyslipidemia:
LDL 101
Prediabetes mellitus:
Hemoglobin A1c 5.9
Alcohol use disorder:
Monitor for signs of withdrawal but there is none so far
Elevated LFTs:
Drinks alcohol only on weekends
Trend
Will reassess if further workup required
Reactive leukocytosis:
Trend
GERD:
Started on PPI
DVT prophylaxis:
Lovenox SQ
CODE STATUS:
Full code
Time spent 35 minutes
Anticipated Discharge: > 48 hours
Subjective/Interval History
-
Date of Service: September 23, 2024
No chest pain or shortness of breath. Afebrile
Objective Data
-
Labs:
Laboratory Results
09/23/24 09/23/24
03:29 05:07
WBC 10.1
Hgb 15.4
Hct 45.6
Plt Count 213
PT 15.4 H
INR 1.19
APTT 29.3
HCO3 23.5
Sodium 136
Potassium 4.3
Chloride 108 H
Carbon Dioxide 23
BUN 18
Creatinine 0.7
Glucose 106 H
Calcium 8.7
Total Bilirubin 0.7
AST 28
ALT 71 H
Alkaline Phosphatase 100
Vital Signs:
Vital Signs
Temp Pulse Resp BP Pulse Ox
98.2 F 53 18 114/63 98
09/23/24 08:21 09/23/24 06:00 09/23/24 08:21 09/23/24 03:25 09/23/24 08:21
[2024-09-23 11:30] VITALS: BP 113/79
[2024-09-23 16:13] VITALS: BP 129/77
--- NOTE | 2024-09-23 16:23 | PTCARENOTE ---
patient sitting in room on his phone, voices no concerns at this time. patient already did am care and I just changed his bedding.
[2024-09-23] MEDS: LOVENOX 40 MG SC (17:54)
[2024-09-23] MEDS: LIPITOR 40 MG PO (17:55)
[2024-09-23 18:50] VITALS: BP 142/78
[2024-09-23 22:54] VITALS: BP 120/80
--- NOTE | 2024-09-23 23:28 | PTCARENOTE ---
Patient received at change of shift resting in the bed. Denies chest pain or other discomforts. Sinus rhythm on telemetry. Right radial site MOISÉS, intact, radial pulse palpable. Oxygen saturation 98% on room air. Discussed plan of care. Call verde
within reach. Care ongoing.
[2024-09-24 03:37] VITALS: BP 129/64
[2024-09-24 03:42] VITALS: BMI 36.4
[2024-09-24 04:13] LABS: Hematocrit 45.7 % (39.0-52.0); Hemoglobin 15.6 g/dL (13.0-18.0); Mean Corp Hgb Conc. 34.1 g/dL (33.0-37.0); Mean Corpuscular Volume 94.4 fL (80.0-94.0); Platelet Count 216 10^3/uL (130-400); Red Cell Dist. Width 13.1 % (11.5-14.5)
[2024-09-24 04:37] LABS: Blood Urea Nitrogen 16 mg/dl (9-20); Calcium 8.8 mg/dl (8.4-10.2); Carbon Dioxide 22 mmol/L (22-30); Chloride 107 mmol/L (98-107); Estimated Creatinine Clearance > 125 ml/min; Glucose 107 mg/dl (70-99); Potassium 4.2 mmol/L (3.5-5.1); Sodium 135 mmol/L (135-145); eGFR > 60.00
[2024-09-24 07:06] VITALS: BP 134/76
--- NOTE | 2024-09-24 07:20 | W.PN.OMFS ---
Today's Communication
-
54 year old male planned for AVR
Tooth #15 with gross decay without acute infection. Extraction indicated.
Assessment / Plan
-
54 year old male planned for AVR
Tooth #15 with gross decay without acute infection. Extraction indicated.
Subjective Data
-
Patient with no complaints. Denies oral pain, discomfort, swelling
Objective Data
-
Vitals, I&O and Lab Results:
Vital Signs
Temp Pulse Resp BP Pulse Ox
98.5 F 59 20 129/64 95
09/24/24 07:05 09/24/24 06:00 09/24/24 07:05 09/24/24 03:37 09/24/24 07:05
Intake and Output
09/23/24 09/24/24 09/25/24
06:59 06:59 06:59
Other:
Number of approximated LARGE 2 2
amounts of urine
Lab Data
09/24/24 03:41
09/24/24 03:41
Plt Count 216 10^3/uL (130-400) 09/24/24 03:41
Physical Exam
-
Awake, Alert
Gross decay of tooth #15. No evidence of acute infection. No facial swelling. No fistula present.
Data Reviewed
-
Diagnostic Radiology: Image personally reviewed and interpreted (Decay of tooth #15.) and Report reviewed by me
--- NOTE | 2024-09-24 08:29 | W.PN.CD ---
Today's Communication / Plan
-
Remains hemodynamically stable.
Continued surgical evaluation by CT surgery
Impression / Plan
-
Severe aortic stenosis.
- Mean gradient 69
- Suspect bicuspid aortic valve
- No evidence of obstructive coronary disease by cardiac catheterization
- Patient evaluated by Dr. Ridley from CT surgery. I reviewed issues with him today. Plan is for CABG and AVR next week. Patient having CT scan to further review anatomy and sizing. Also decision is being made regarding type of AVR try to take
in account all the variables including size of valves and additional planning for future procedures also patient. 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
.
Chest Pain. No obstructive coronary disease by recent catheterization. Currently chest pain-free. Would continue treatment for GERD
.
Troponin elevation
- Non-NM troponin elevation likely related to severe aortic stenosis and syncope
Syncope:
- In setting of severe aortic stenosis
Dyslipidemia:
-statin
Smoking:
- Recommends patient's quit.
GERD:
-PPI ordered
Physical Exam
Vital Signs/Labs
Vital Signs
Temp Pulse Resp BP Pulse Ox
98.5 F 59 20 129/64 95
09/24/24 07:05 09/24/24 06:00 09/24/24 07:05 09/24/24 03:37 09/24/24 07:05
09/23/24 09/24/24 09/25/24
06:59 06:59 06:59
Actual Weight 100 kg 99.2 kg
09/24/24 03:41
09/24/24 03:41
PT 15.4 Sec (11.4-14.6) H 09/23/24 03:29
INR 1.19 09/23/24 03:29
APTT 29.3 Sec (23.4-35.0) 09/23/24 03:29
Magnesium 2.3 mg/dl (1.6-2.3) 09/22/24 04:31
Triglycerides 178 mg/dl (10-149) H 09/21/24 05:02
LDL Cholesterol, Calc 101 mg/dl 09/21/24 05:02
VLDL Cholesterol, Calc 35 mg/dl (0-30) H 09/21/24 05:02
HDL Cholesterol 37 mg/dl 09/21/24 05:02
09/20/24
22:04
[id number]-[id number] Pept 558
LAB Results
09/21/24 09/21/24 09/21/24
10:45 11:46 16:15
Troponin I Cancelled 1.340 H* D Cancelled
Physical Exam
Constitutional: No acute distress
Cardiovascular: Rhythm & rate is regular and Systolic murmur present
Respiratory: Respiratory effort normal, Wheeze Absent and Rhonchi Absent
GI: Soft
Data Reviewed
-
Date of Service: September 24, 2024
Medical Decision Making: Reviewed Test Results
X-Ray/CT/US/MRI/NUC/PET: Report Reviewed by me
Medical Tests (PFT, Pathology etc): Report Reviewed by me
Labs: Labs Reviewed by me
--- NOTE | 2024-09-24 08:29 | W.PN.HOSP.TC ---
Today's Communication/Plan
-
Plan for aortic valve replacement
Assessment / Plan
Assessment / Plan
Physical exam:
General: Acutely ill
HEENT: Normocephalic, Atraumatic and Moist Mucous Membranes
Respiratory: Clear to Auscultation; Negative Wheezes, Rales or Rhonchi
Cardiac: Regular Rhythm and S1/S2, systolic ejection murmur
GI: Soft, Nontender and Nondistended
Musculoskeletal: No Clubbing, No Cyanosis and No Edema
Neuro: Awake, Alert and Oriented
Psych: Calm
A/P:
Severe arctic stenosis:
Cardiac cath and echocardiogram reviewed
Echocardiogram with severe mean gradient 69 mmHg, normal EF 55 to 60%
Cardiothoracic surgery consult
Appreciated cardiology
Discussed with family at bedside
Syncope:
Likely related to
Cardiac monitoring
Tooth decay:
Oral maxillary surgeon will do extraction of the tooth
Ruled out Non-STEMI and elevated troponin related to non-ischemic myocardial injury.
Dyslipidemia:
LDL 101
Prediabetes mellitus:
Hemoglobin A1c 5.9
Alcohol use disorder:
Monitor for signs of withdrawal but there is none so far
Elevated LFTs:
Drinks alcohol only on weekends
Trend
Will reassess if further workup required
Reactive leukocytosis:
Trend
GERD:
Started on PPI
DVT prophylaxis:
Lovenox SQ
CODE STATUS:
Full code
Time spent 35 minutes
Anticipated Discharge: > 48 hours
Subjective/Interval History
-
Date of Service: September 24, 2024
Denies any chest pain or shortness of breath. Reports some tooth decay but no pain or fevers.
Objective Data
-
Labs:
Laboratory Results
09/24/24
03:41
WBC 9.9
Hgb 15.6
Hct 45.7
Plt Count 216
Sodium 135
Potassium 4.2
Chloride 107
Carbon Dioxide 22
BUN 16
Creatinine 0.6 L
Glucose 107 H
Calcium 8.8
Vital Signs:
Vital Signs
Temp Pulse Resp BP Pulse Ox
98.5 F 59 20 129/64 95
09/24/24 07:05 09/24/24 06:00 09/24/24 07:05 09/24/24 03:37 09/24/24 07:05
[2024-09-24] MEDS: LOW STRENGTH ASPIRIN 81 MG PO (08:45)
[2024-09-24] MEDS: PROTONIX 40 MG PO (08:45)
--- NOTE | 2024-09-24 11:03 | PTCARENOTE ---
received patient this am ambulating in room, le. well. no complaints. monitor shows NSR, VSS, patients family at bedside and brought food in for him. patient is British speaking, understands some Syriac. instructed patient to call me if he needs
anything, patient verbalized understanding.
--- NOTE | 2024-09-24 11:06 | PTCARENOTE ---
patient is aware that he is NPO after MN for teeth extraction in am.
[2024-09-24 12:01] VITALS: BP 139/81
[2024-09-24 15:08] VITALS: BP 143/84
[2024-09-24] MEDS: LOVENOX 40 MG SC (17:42)
[2024-09-24] MEDS: LIPITOR 40 MG PO (17:42)
[2024-09-24 19:27] VITALS: BP 121/68
[2024-09-24 22:47] VITALS: BP 124/74
[2024-09-25 04:32] VITALS: BP 137/68
[2024-09-25 04:41] VITALS: BMI 36.2
[2024-09-25 04:59] LABS: Hematocrit 44.8 % (39.0-52.0); Hemoglobin 15.5 g/dL (13.0-18.0); Mean Corp Hgb Conc. 34.6 g/dL (33.0-37.0); Mean Corpuscular Volume 93.1 fL (80.0-94.0); Platelet Count 216 10^3/uL (130-400); Red Cell Dist. Width 13.1 % (11.5-14.5)
[2024-09-25 05:12] LABS: Blood Urea Nitrogen 17 mg/dl (9-20); Calcium 9.1 mg/dl (8.4-10.2); Carbon Dioxide 23 mmol/L (22-30); Chloride 108 mmol/L (98-107); Estimated Creatinine Clearance > 125 ml/min; Glucose 104 mg/dl (70-99); Potassium 4.4 mmol/L (3.5-5.1); Sodium 135 mmol/L (135-145); eGFR > 60.00
[2024-09-25 08:39] VITALS: BP 112/67
[2024-09-25] MEDS: PROTONIX 40 MG PO (08:50)
[2024-09-25] MEDS: LOW STRENGTH ASPIRIN 81 MG PO (08:50)
--- NOTE | 2024-09-25 09:48 | PTCARENOTE ---
received patient this am, was told by previous RN that tooth extraction was cancelled today and patient may eat . family at bedside ordering him breakfast. lab work completed and sent to lab. patient will have MRI today as ordered. patient is
Solomon Islander speaking, speaks some Iraqi, family at bedside all the time for interpretation. monitor shows NSR, VSS.
--- NOTE | 2024-09-25 10:28 | W.PN.CD ---
Today's Communication / Plan
-
For tooth extraction
W/u for AVR underway
Impression / Plan
-
Severe aortic stenosis, mean gradient 69, suspect bicuspid aortic valve
Non obstructive coronary disease noted at cath this admission
Nonischemic myocardial injury, troponin peak 1.98, related to severe aortic stenosis and syncope
Syncope, in setting of severe aortic stenosis
- Watch on tele
Dyslipidemia => statin, goal LDL will be aggressive => less than 70
Smoking, smoking cessation has been reviewed
GERD, on PPI
BMI 36
Polish speaking, family at bedside
Subjective:
No CP or dyspnea, tele quiet
Physical Exam
Vital Signs/Labs
Vital Signs
Temp Pulse Resp BP Pulse Ox
97.9 F 63 18 137/68 95
09/25/24 04:33 09/25/24 08:36 09/25/24 08:36 09/25/24 04:32 09/25/24 08:36
09/24/24 09/25/24 09/26/24
06:59 06:59 06:59
Actual Weight 99.2 kg 98.7 kg
09/25/24 04:39
09/25/24 04:39
PT 15.4 Sec (11.4-14.6) H 09/23/24 03:29
INR 1.19 09/23/24 03:29
APTT 29.3 Sec (23.4-35.0) 09/23/24 03:29
Magnesium 2.3 mg/dl (1.6-2.3) 09/22/24 04:31
Triglycerides 178 mg/dl (10-149) H 09/21/24 05:02
LDL Cholesterol, Calc 101 mg/dl 09/21/24 05:02
VLDL Cholesterol, Calc 35 mg/dl (0-30) H 09/21/24 05:02
HDL Cholesterol 37 mg/dl 09/21/24 05:02
09/20/24
22:04
[id number]-G-[id number] Pept 558
Physical Exam
Constitutional: No acute distress
EENT: Anicteric
Cardiovascular: Rhythm & rate is regular, Pedal edema is absent and Systolic murmur present (2-3/6 late peaking in aortic region)
Respiratory: Respiratory effort normal and Lungs clear to auscul.
GI: Soft and Distention absent
Neuro/Psych: Alert
Data Reviewed
-
Date of Service: September 25, 2024
--- NOTE | 2024-09-25 10:30 | W.PN.HOSP.TC ---
Today's Communication/Plan
-
see plan
Assessment / Plan
Assessment / Plan
Gen: NAD, Awake and alert
Eyes: EOMI, PERRLA, no scleral icterus.
Neck: supple.
CV: RRR, +S1/S2, 3/6 systolic murmur
Resp: CTAB, no rales, wheezes, or rhonchi.
Abd: +BS, soft, NT, ND
Skin: No rashes.
Neuro: CN 2-12 intact, non-focal.
Psych: Normal mood and affect.
Echo: EF 55-60%. Severe with mean gradient 69 mmHg. Suspected bicuspid aortic valve. Mild aortic regurgitation. Mild mitral regurgitation. No prior study available for comparison.
Cardiac cath: No obstructive CAD
Orthopantogram: Large dental caries in the left 1st maxillary molar.
Carotid U/S: Unremarkable carotid ultrasound. No significant atherosclerotic disease or areas of luminal narrowing appreciated. Antegrade flow within the vertebral arteries.
CT chest (TAVR):
1. Moderate to severe calcification in the aortic valve.
2. Mild subpleural scarring in the posterior basilar segment of the right lower lobe and lateral basilar segment of the left lower lobe.
3. Mild thyromegaly.
4. Severe diffuse hepatic steatosis.
5. 1.3 cm round arterial enhancing lesion in the medial segment of the left lobe of the liver. Diagnostic possibilities are (1) a hypervascular liver tumor or (2) an intrahepatic vascular shunt.
Syncope due to severe :
-CT surgery following with tentative plan for minimally invasive SAVR 09/27/24
-oral surgeon to extract left 1st maxillary molar tomorrow
Other problems:
Elevated troponin due to non-ischemic myocardial injury
HLD: cont statin
Prediabetes: a1c 5.9%
Alcohol use disorder: No evidence for withdrawal
Leukocytosis, reactive, resolved
GERD: cont PPI
Obesity due to excess calories
FULL/Lovenox
Anticipated Discharge: > 48 hours
Subjective/Interval History
-
Date of Service: September 25, 2024
Currently denies CP/SOB.
Objective Data
-
Labs:
Laboratory Results
09/25/24
04:39
WBC 10.1
Hgb 15.5
Hct 44.8
Plt Count 216
Sodium 135
Potassium 4.4
Chloride 108 H
Carbon Dioxide 23
BUN 17
Creatinine 0.6 L
Glucose 104 H
Calcium 9.1
Vital Signs:
Vital Signs
Temp Pulse Resp BP Pulse Ox
97.9 F 63 18 137/68 95
09/25/24 04:33 09/25/24 08:36 09/25/24 08:36 09/25/24 04:32 09/25/24 08:36
[2024-09-25 11:17] VITALS: BP 110/64
--- NOTE | 2024-09-25 11:38 | CM ---
Chart reviewed. Patient is independent of ADLS, lives with his sister and parents in a 1 [address], 2 KING, 0 DME. Patient waiting to go for an MRI. Patient going for a SAVR on 09/27. Plan is for the patient to return home with CT Transitional RN. CM
to follow
--- NOTE | 2024-09-25 14:25 | CON.GI ---
Addendum entered and electronically signed by Emily Koenig Do, MD 09/25/24 16:52:
I saw and examined the patient.
The OCCUPATIONAL THERAPIST ASSISTANT's note was reviewed and I agree with the note.
Comment: Chilango is a 54yo M with h/o ETOH use and GERD who presents with syncope. He had LHC and is undergoing AVR evaluation. GI consulted for hepatic steatosis elevated LFTs. He denies h/o liver disease in the past. Vitals reviewed exam obese
abd NTTP, NABS. Labs reviewed mild elevations in LFT. MRI reviewed with 1.1 hypervascular hepatic lesions in L liver lobe suggestive of flash filling hemangioma most likely vs HCC less likely
Impression
- 1.1cm liver lesion
MRI reviewed no LIRAD score given
Ddx is hemangioma vs HCC (less likely)
- ETOH use
- GERD
- Hepatic steatosis
- CAD
- Severe
Recommendations
- Check AFP
- Add on viral hepatitis serologies
- ETOH cessation
- Will d/w radiologist tomorrow about MRI read and LIRAD score. Given lack of cirrhosis HCC is less likely. Will determine if liver bx is indicated vs repeat serial imaging at later time
- C/w PPI
Will follow with you.
Original Note:
Consultation
-
Date/Time Consultation Requested: 09/24/24 1719
Date/Time Consultation Performed: 09/25/24 1428
Requesting Provider: VERNELL Begum
Performing Provider: Dr. David/VERNELL Mandujano
Reason for Consultation: liver lesion
Medical History
Chief Complaint / HPI
Chief Complaint: syncope, CP
History of Present Illness:
54 y/o male with PMH of GERD, tobacco use, ETOH use on the weekends presents to the ER with some substernal chest discomfort followed by syncope after taking the trash out. The patient does not follow routinely with medical providers. He was taken
to director of cardiac cath lab on 09/21/24 and found to have severe bicuspid aortic stenosis without obstructive CAD. He was evaluated by CT surgery and is undergoing evaluation for AVR. During this eval the patient had Coronary CT that showed severe diffuse hepatic
steatosis. 1.3 cm round arterial enhancing lesion in the medial segment of the left lobe of the liver. Diagnostic possibilities are (1) a hypervascular liver tumor or (2) an intrahepatic vascular shunt. We are asked to evaluate for the same prior to
planned AVR. The patient denies any hx of hepatitis or risk factors for hepatitis. He does drink ETOH on weekends approx 6-8 drinks. He does eat poorly per his son who acts as a coreroom foundry laborer at bedside. Does not take any meds or supplements at home.
No fam hx of Liver disease or cancer.
Past Medical History
Past Medical History: GERD and Hypercholesterolemia
Past Surgical History: Other (left lower leg surgery with pins)
Social History
Tobacco: Smoker
Alcohol: Occasional (drinks 6-8 on weekends)
Drug: None
Living: With Family
Employment: Employed
Family History
Family History: Other (no fam hx of liver disease, GI malignancy or IBD)
Allergies / Home Medications
Allergy/AdvReac Type Severity Reaction Status Date / Time
No Known Allergies Allergy Verified 09/20/24 22:12
�Medication �Instructions �Recorded
Vitamin 1 dose PO DAILY PRN pain 09/20/24
Review of Systems
-
All other systems: A 12 pt ROS was Negative except as stated above in HPI
Vital Signs
Temp Pulse Resp BP Pulse Ox
98 F 72 18 137/68 95
09/25/24 11:16 09/25/24 11:16 09/25/24 11:16 09/25/24 04:32 09/25/24 11:16
Physical Exam
Exam
General: No Apparent Distress
HEENT: Anicteric
Respiratory: Clear
Cardiac: Regular Rhythm and Murmur
GI: Soft, Non Tender, Non Distended and Normal Bowel Sounds
Skin: Warm
Neuro: AO x 3
Psych: Calm
Results
WBC 10.1 10^3/uL (4.8-10.8) 09/25/24 04:39
Hgb 15.5 g/dL (13.0-18.0) 09/25/24 04:39
Hct 44.8 % (39.0-52.0) 09/25/24 04:39
MCV 93.1 fL (80.0-94.0) 09/25/24 04:39
Plt Count 216 10^3/uL (130-400) 09/25/24 04:39
Absolute Neuts (auto) 7.0 10^3/uL (1.4-6.5) H 09/22/24 04:31
PT 15.4 Sec (11.4-14.6) H 09/23/24 03:29
INR 1.19 09/23/24 03:29
APTT 29.3 Sec (23.4-35.0) 09/23/24 03:29
Sodium 135 mmol/L (135-145) 09/25/24 04:39
Potassium 4.4 mmol/L (3.5-5.1) 09/25/24 04:39
Chloride 108 mmol/L (98-107) H 09/25/24 04:39
Carbon Dioxide 23 mmol/L (22-30) 09/25/24 04:39
BUN 17 mg/dl (9-20) 09/25/24 04:39
Creatinine 0.6 mg/dL (0.7-1.3) L 09/25/24 04:39
Calcium 9.1 mg/dl (8.4-10.2) 09/25/24 04:39
Total Bilirubin 0.7 mg/dl (0.2-1.3) 09/23/24 03:29
AST 28 U/L (17-59) 09/23/24 03:29
ALT 71 U/L (0-50) H 09/23/24 03:29
Alkaline Phosphatase 100 U/L (38-126) 09/23/24 03:29
Diagnostic Image Results:
Coronary CT:
IMPRESSION:
1. Moderate to severe calcification in the aortic valve.
2. Mild subpleural scarring in the posterior basilar segment of the right lower lobe and lateral basilar segment of the left lower lobe.
3. Mild thyromegaly.
4. Severe diffuse hepatic steatosis.
5. 1.3 cm round arterial enhancing lesion in the medial segment of the left lobe of the liver. Diagnostic possibilities are (1) a hypervascular liver tumor or (2) an intrahepatic vascular shunt.
CXR:
IMPRESSION:
Mildly decreased lung volumes without focal airspace disease or overt pulmonary edema
Prior GI Procedures:
EGD: never
Colonoscopy: never
Assessment / Plan
-
54 y/o male with PMH of GERD, tobacco use, ETOH use on the weekends presents to the ER with some substernal chest discomfort followed by syncope after taking the trash out. The patient does not follow routinely with medical providers. He was taken
to director of cardiac cath lab on 09/21/24 and found to have severe bicuspid aortic stenosis without obstructive CAD. He was evaluated by CT surgery and is undergoing evaluation for AVR. During this eval the patient had Coronary CT that showed severe diffuse hepatic
steatosis. 1.3 cm round arterial enhancing lesion in the medial segment of the left lobe of the liver. Diagnostic possibilities are (1) a hypervascular liver tumor or (2) an intrahepatic vascular shunt. We are asked to evaluate for the same prior to
planned AVR.
Impression:
Severe Aortic stenosis with planned AVR
1.3 cm hepatic lesion
Hepatic steatosis
Elevated ALT
PLan:
-Await MRI Abd
-Acute Hepatitis panel
-Check AFP
-Discussed with patient and son about hepatic steatosis and need to follow low fat/low glycemic index diet
-Stop ETOH
-Stop smoking
-Recommend routine GI follow up care/colonoscopy as never had one in the future.
-Further recommendations to be forthcoming
-
-
Thank you for consultation and allowing me to participate in the patient's care. Please call the office nurse practitioner GI physician during the after hours with any questions or concerns.
--- NOTE | 2024-09-25 14:26 | PTCARENOTE ---
MRI complete, patient back in room.
[2024-09-25 15:39] VITALS: BP 136/84
[2024-09-25] MEDS: LOVENOX 40 MG SC (17:58)
[2024-09-25] MEDS: LIPITOR 40 MG PO (17:58)
[2024-09-25 18:14] LABS: Hepatitis B Surface Antigen Negative (Negative)
[2024-09-25 18:21] LABS: AFP Male/Tumor Marker 5.42 ng/ml
[2024-09-25 18:32] LABS: Hepatitis C Antibody Negative (Negative)
[2024-09-25 19:18] VITALS: BP 124/82
[2024-09-25 22:33] VITALS: BP 128/81
[2024-09-26] VITALS (10 sets, daily range): BP systolic 104–139; BP diastolic 67–89; BMI 36.3
--- NOTE | 2024-09-26 05:11 | PTCARENOTE ---
Pt SB on monitor, VSS. Pt denies any pain or discomfort. NPO for tooth extraction. Pt independent in the room, call verde within reach
--- NOTE | 2024-09-26 07:33 | W.PN.CT ---
Today's Communication / Plan
-
Plan:
-Cont. current medical management per primary team
-Cont. current meds (ASA, Lipitor)
-Ongoing preop workup (for tooth extraction today @ 4pm)
-For Mini AVR by Dr. Ridley tomorrow, 09/27
-Will cont. to closely monitor
Assessment / Plan
-
Assessment:
-Severe
-Non-obstructive CAD, per Cath 09/21/24
-Non AR troponin elevation
-LVEF 60-65%
-Hyperlipidemia
-Class 2 obesity (BMI 36.3)
-GERD
-Active tobacco use (3 cigs/day)
-Poor dentition
-ETOH use
-Transaminitis
Discussed patient care with: Cardiology, Nursing, Respiratory Therapy, Pharmacy and Care Team
Subjective
-
Date of Service: September 26, 2024
No issues overnight. Denies CP/SOB
Objective Data
-
Lab Results
09/25/24 04:39
09/25/24 04:39
PT 15.4 Sec (11.4-14.6) H 09/23/24 03:29
INR 1.19 09/23/24 03:29
APTT 29.3 Sec (23.4-35.0) 09/23/24 03:29
Vital Signs
Vital Signs
Temp Pulse Resp BP Pulse Ox
97.4 F 71 18 136/78 97
09/26/24 07:22 09/26/24 07:22 09/26/24 07:22 09/26/24 07:22 09/26/24 07:22
SaO2: 97 (RA)
Physical Exam
-
General: Awake, Oriented and AOx3
Cardiovascular: Regular rate & rhythm and Murmur (3/6 systolic murmur)
Respiratory: Clear
Extremities: Other (+trace edema)
Data Reviewed
-
Lab Results: Results Reviewed
Medications: Active Meds Reviewed
Chest X-Ray: Report Reviewed and Image Reviewed
ECG: Report Reviewed and Image Reviewed
[2024-09-26] MEDS: PROTONIX 40 MG PO (08:54)
[2024-09-26] MEDS: LOW STRENGTH ASPIRIN 81 MG PO (08:54)
[2024-09-26] MEDS: FLUSH (NSS) 1 FLUSH IV (08:55)
--- NOTE | 2024-09-26 09:52 | W.PN.CD ---
Today's Communication / Plan
-
For tooth extraction
W/u for AVR underway
Impression / Plan
-
Severe aortic stenosis, mean gradient 69, suspect bicuspid aortic valve
Non obstructive coronary disease noted at cath this admission
Nonischemic myocardial injury, troponin peak 1.98, related to severe aortic stenosis and syncope
Syncope, in setting of severe aortic stenosis
- Watch on tele, so far just a few PVCs
Dyslipidemia => statin, goal LDL will be aggressive => less than 70
Smoking, smoking cessation has been reviewed
GERD, on PPI
BMI 36
GI issues, appreciate GI input:
- 1.1cm liver lesion => Ddx is hemangioma vs HCC (less likely)
- ETOH use
- GERD
- Hepatic steatosis
Bulgarian speaking, family at bedside
Subjective:
No CP or dyspnea, tele quiet
Physical Exam
Vital Signs/Labs
Vital Signs
Temp Pulse Resp BP Pulse Ox
97.4 F 71 18 136/78 97
09/26/24 07:22 09/26/24 07:22 09/26/24 07:22 09/26/24 07:22 09/26/24 07:35
09/25/24 09/26/24 09/27/24
06:59 06:59 06:59
Actual Weight 98.7 kg 98.9 kg
09/25/24 04:39
09/25/24 04:39
PT 15.4 Sec (11.4-14.6) H 09/23/24 03:29
INR 1.19 09/23/24 03:29
APTT 29.3 Sec (23.4-35.0) 09/23/24 03:29
Magnesium 2.3 mg/dl (1.6-2.3) 09/22/24 04:31
Triglycerides 178 mg/dl (10-149) H 09/21/24 05:02
LDL Cholesterol, Calc 101 mg/dl 09/21/24 05:02
VLDL Cholesterol, Calc 35 mg/dl (0-30) H 09/21/24 05:02
HDL Cholesterol 37 mg/dl 09/21/24 05:02
09/20/24
22:04
Jwp-Z-Btkbzplmbri Pept 558
Physical Exam
Constitutional: No acute distress
Cardiovascular: Rhythm & rate is regular and Systolic murmur present
Respiratory: Respiratory effort normal and Lungs clear to auscul.
GI: Soft and Distention absent
Neuro/Psych: Alert
Data Reviewed
-
Date of Service: September 26, 2024
--- NOTE | 2024-09-26 11:29 | W.PN.HOSP.TC ---
Today's Communication/Plan
-
see plan
Assessment / Plan
Assessment / Plan
Gen: NAD, Awake and alert
Eyes: EOMI, PERRLA, no scleral icterus.
Neck: supple.
CV: Remains RRR, +S1/S2, 3/6 systolic murmur
Resp: Remains CTAB, no rales, wheezes, or rhonchi.
Abd: +BS, soft, NT, ND
Skin: No rashes.
Neuro: Remains CN 2-12 intact, non-focal.
Psych: Normal mood and affect.
Echo: EF 55-60%. Severe with mean gradient 69 mmHg. Suspected bicuspid aortic valve. Mild aortic regurgitation. Mild mitral regurgitation. No prior study available for comparison.
Cardiac cath: No obstructive CAD
Orthopantogram: Large dental caries in the left 1st maxillary molar.
Carotid U/S: Unremarkable carotid ultrasound. No significant atherosclerotic disease or areas of luminal narrowing appreciated. Antegrade flow within the vertebral arteries.
CT chest (TAVR):
1. Moderate to severe calcification in the aortic valve.
2. Mild subpleural scarring in the posterior basilar segment of the right lower lobe and lateral basilar segment of the left lower lobe.
3. Mild thyromegaly.
4. Severe diffuse hepatic steatosis.
5. 1.3 cm round arterial enhancing lesion in the medial segment of the left lobe of the liver. Diagnostic possibilities are (1) a hypervascular liver tumor or (2) an intrahepatic vascular shunt.
Syncope due to severe :
-CT surgery following with tentative plan for minimally invasive SAVR 09/27/24
-oral surgeon to extract left 1st maxillary molar today
Other problems:
Elevated troponin due to non-ischemic myocardial injury
HLD: cont statin
Prediabetes: a1c 5.9%
Alcohol use disorder: No evidence for withdrawal
Leukocytosis, reactive, resolved
GERD: cont PPI
Obesity due to excess calories
FULL/Lovenox
Anticipated Discharge: > 48 hours
Subjective/Interval History
-
Date of Service: September 26, 2024
Denies chest pain or shortness of breath.
Objective Data
-
Vital Signs:
Vital Signs
Temp Pulse Resp BP Pulse Ox
97.4 F 71 18 136/78 97
09/26/24 07:22 09/26/24 07:22 09/26/24 07:22 09/26/24 07:22 09/26/24 07:35
--- NOTE | 2024-09-26 11:34 | CM ---
Chart reviewed. Patient is independent of ADLS, lives with his sister and parents in a 1 STH, 2 KING, 0 DME. Reviewed preoperative and postoperative instructions and restrictions, along with showering guidelines. Patient is agreeable to a home
visit by CT Transitional RN. Gave patient a Cardiac Surgery Book. Patient's daughter at bedside to translate. Plan is for the patient to return home with CT Transitional RN. CM to follow
[2024-09-26 14:04] LABS: CEA 1.15 ng/ml
--- NOTE | 2024-09-26 14:27 | W.PN.UPDATE ---
Addendum entered and electronically signed by Maxwell Ridley MD 09/26/24 15:58:
UPDATE:
I spoke with patient and his family again after confirming monthly self-pay cost of warfarin. We rediscussed the characteristics, benefits, and drawbacks of mechanical vs. biologic valve replacements. The patient desires a mechanical valve
replacement. Our conversations were aided with photographic restorer [id number].
Thank you,
Maxwell Ridley M.D.
Original Note:
Update Note
Progress Note Update
CARDIAC SURGERY ATTENDING:
I had another long conversation with Mr. Chilango Gaston, this time with the aid of a photographic restorer to go over the complete details and risks of his planned AVR. It is my hope to accomplish this via a minimally invasive upper 'J type'
hemisternotomy. We discussed the possibility that an open approach may be required if surgical visualization is less than ideal. I also plan to perform concurrent exclusion of his left atrial appendage if this structure is surgically accessible.
I had a very long discussion with him and his family regarding valve choice. We discussed the differences between mechanical and biologic valve replacements. Initially, the patient had been leaning towards a biologic replacement. On further
discussion, the patient chose a mechanical aortic valve prosthesis. We reviewed the details of the operation, the associated periprocedural risks (including, but not limited to, , stroke, CO, arrhythmia, PPM requirement, PNA, JESSICA/F, bleeding,
and infection). We discussed the expected in-hospital postprocedural course and reviewed the expected outpatient recovery. All questions were answered to the best of my abilities. The patient was agreeable to proceed. Informed consent was
obtained.
I was subsequently contacted by the patient's nurse via [employer] who stated that the patient's son had reached out stating that his father wanted a biologic prosthesis instead. The patient's nurse currently confirmed this with the aid of a [place]
billing and insurance coordinator. His concern stems around the cost of Coumadin, 'because the medication is too expensive and would cost him $700 per month.' I will respeak with the patient regarding valve choice this afternoon.
Thank you.
Maxwell Ridley MD
[phone]
--- NOTE | 2024-09-26 16:25 | OR.RPT ---
Operative Report
Operative Report
Patient: Chilango Gaston
: 12:24:1969

Operative Date:09/26/2024 at 4:00pm
Surgeon: Bobby Lopez MD, DDS
Preoperative Diagnosis: Carious Tooth #15
Postoperative Diagnosis: Carious Tooth #15
Operation Performed: Surgical Extraction of Tooth #15
HPI: 54 year old male with severe planned for AVR requiring dental clearance. Panoramic x-ray and physical examination demonstrate a grossly carious tooth #15 requiring extraction.
Operative Report: The patient was identified in preoperative holding and written consetn was obtained. The patient was brought to the OR and transferred to the OR bed.
Time out was performed with confirmation of surgical site. Local anesthesia, 2% Lidocaine with Epi and 0.5% Marcaine were administered in at the planned surgical site. Tooth #15 was extracted surgically with elevator and forcep without
complications. The extraction socket was debrided and thoroughly irrigated. Gel-foam was packed into the site and the site was closed with 3-0 Chromic gut suture.
The patient tolerated the procedure well and was transferred to the PACU for recovery and return to the floor.
Anesthesia: MAC
EBL: 3cc
Complications: None
Disposition: Return to floor. Patient is clear from a dental perspective for planned AVR.
--- NOTE | 2024-09-26 17:30 | PTCARENOTE ---
Received the patient from PACU post tooth extraction. The patient is aao, vital signs are stable. At his extraction site (#15 left upper), sutures are visible with no bleeding noted. He has no complains of pain.
[2024-09-26] MEDS: LOVENOX 40 MG SC (18:29)
[2024-09-26] MEDS: LIPITOR 40 MG PO (18:29)
--- NOTE | 2024-09-26 19:23 | W.PN.GI.CBS2 ---
Today's Communication / Plan
-
-- nothing to do inpatient
-- will need outpatient discussion of his hepatic lesion after tumor board discussion.
-- will sign off for now and get back to patient as an outpatient.
Assessment / Plan
-
54 y/o male with PMH of GERD, tobacco use, ETOH use on the weekends presents to the ER with some substernal chest discomfort followed by syncope after taking the trash out. The patient does not follow routinely with medical providers. He was taken
to manager labor relations on 09/21/24 and found to have severe bicuspid aortic stenosis without obstructive CAD. He was evaluated by CT surgery and is undergoing evaluation for AVR. During this eval the patient had Coronary CT that showed severe diffuse hepatic
steatosis. 1.3 cm round arterial enhancing lesion in the medial segment of the left lobe of the liver. Diagnostic possibilities are (1) a hypervascular liver tumor or (2) an intrahepatic vascular shunt. We are asked to evaluate for the same prior to
planned AVR.
Impression:
Severe Aortic stenosis with planned AVR
1.3 cm hepatic lesion
Hepatic steatosis
Elevated ALT
MRI 09/25/24: There is no evidence for nodularity of the liver contour or fibrosis in the liver to suggest the presence of hepatic cirrhosis.
There is an 8.7 x 1.1 x 1.1 cm circumscribed lesion in the medial segment of the left lobe of the liver which demonstrates non-rim arterial phase hyperenhancement and nonperipheral 'washout.' The lesion does not appear to have an enhancing 'capsule.'
If there is known hepatic cirrhosis or chronic HPV infection, this lesion would categorize as LI-RADS 5.
-Acute Hepatitis panel negative
-AFP and CEA are normal
- CAP 19-9 is pending
-Discussed with patient and son about hepatic steatosis and need to follow low fat/low glycemic index diet and no alcohol
-Stop ETOH
-Stop smoking
-Recommend routine GI follow up care/colonoscopy as never had one
I discussed his hepatic finding with hepatology, Dr. Sheppard, at [place] who will present his MRI findings at tumor board.
We will let the patient know the results after the read
This should not interfere with his cardiac surgery.
Subjective
Subjective
Date of Service: September 26, 2024
no complaints
Objective
Data Reviewed
Laboratory Data:
Laboratory Results
09/25/24 04:39
09/25/24 04:39
Laboratory Results
PT 15.4 Sec (11.4-14.6) H 09/23/24 03:29
INR 1.19 09/23/24 03:29
APTT 29.3 Sec (23.4-35.0) 09/23/24 03:29
Magnesium 2.3 mg/dl (1.6-2.3) 09/22/24 04:31
Total Bilirubin 0.7 mg/dl (0.2-1.3) 09/23/24 03:29
AST 28 U/L (17-59) 09/23/24 03:29
ALT 71 U/L (0-50) H 09/23/24 03:29
Alkaline Phosphatase 100 U/L (38-126) 09/23/24 03:29
Vital Signs and I&O:
Vital Signs
Temp Pulse Resp BP Pulse Ox
97.9 F 70 20 126/85 97
09/26/24 19:00 09/26/24 17:00 09/26/24 19:00 09/26/24 17:00 09/26/24 19:00
Physical Exam
Physical Exam
HEENT: Anicteric
GI: Soft, Non Distended and Non Tender
Neuro: Non Focal
[2024-09-26] MEDS: TYLENOL 650 MG PO (21:12)
[2024-09-27] VITALS (10 sets, daily range): BP systolic 99–125; BP diastolic 61–89; BMI 35.7
--- NOTE | 2024-09-27 00:16 | PTCARENOTE ---
Tele monitor shows SR w/ PVCs. VSS. Pt c/o mouth pain d/t recent tooth extraction. PRN Tylenol administered at 21:12. 1st round of prep completed. Pt clipped and showered, Nik OROZCO at bedside and approved clippings. Bead Preparer provided, and
instructed pt to remain NPO at midnight. POC ongoing. Call verde within reach.
[2024-09-27 05:08] LABS: Hematocrit 44.8 % (39.0-52.0); Hemoglobin 15.2 g/dL (13.0-18.0); Mean Corp Hgb Conc. 33.9 g/dL (33.0-37.0); Mean Corpuscular Volume 93.1 fL (80.0-94.0); Platelet Count 222 10^3/uL (130-400); Red Cell Dist. Width 12.9 % (11.5-14.5)
[2024-09-27 05:35] LABS: ALT (SGPT) 49 U/L (0-50); AST (SGOT) 25 U/L (17-59); Albumin 4.0 g/dl (3.5-5.0); Alkaline Phosphatase 110 U/L (38-126); Blood Urea Nitrogen 18 mg/dl (9-20); Calcium 8.8 mg/dl (8.4-10.2); Carbon Dioxide 24 mmol/L (22-30); Chloride 106 mmol/L (98-107); Estimated Creatinine Clearance > 125 ml/min; Glucose 112 mg/dl (70-99); Magnesium 2.1 mg/dl (1.6-2.3); Potassium 4.2 mmol/L (3.5-5.1); Sodium 136 mmol/L (135-145); Total Protein 6.2 g/dl (6.3-8.2); eGFR > 60.00
[2024-09-27] MEDS: PROTONIX 40 MG PO (05:42)
[2024-09-27] MEDS: LOPRESSOR 25 MG PO (05:42)
[2024-09-27] MEDS: MAGNESIUM OXIDE 500 MG PO (05:42)
[2024-09-27] MEDS: BACTROBAN 2% OINTMENT 1 APPLIC NASAL ×2 (05:43→20:50)
--- NOTE | 2024-09-27 07:06 | PTCARENOTE ---
Personal belongings sent to room 2267.
[2024-09-27 07:21] LABS: ACT+ - POC 153 Seconds (82-134)
[2024-09-27 07:41] LABS: Urine Character Clear (Clear)
[2024-09-27 09:30] LABS: B.E. - POC -1.9 mmol/L; Glucose - POC 115 mg/dl (70-99); HCO3 - POC 23 mmol/L (21-28); Hematocrit - POC 40 % PCV (42-52); Hemodilution- POC No; Hemoglobin Calculated - POC 13.4; Ionized Calcium - POC 1.09 mmol/L (1.15-1.33); Lactate - POC 1.05 mmol/L (0.36-0.75); O2 Saturation %Calculated-POC 99.9 % (94-98); PCO2 - POC 38 mmHg (35-48); PO2 - POC 254 mmHg (83-108); POC Comment CPB; Potassium - POC 3.7 mmol/L (3.5-5.1); Sodium - POC 139 mmol/L (136-145); Specimen Type - POC Arterial; pH - POC 7.39 (7.35-7.45)
[2024-09-27 09:42] LABS: ACT+ - POC 641 Seconds (82-134)
[2024-09-27 09:59] LABS: B.E. - POC 3.1 mmol/L; Glucose - POC 138 mg/dl (70-99); HCO3 - POC 28 mmol/L (21-28); Hematocrit - POC 36 % PCV (42-52); Hemodilution- POC Yes; Hemoglobin Calculated - POC 12.1; Ionized Calcium - POC 0.99 mmol/L (1.15-1.33); Lactate - POC 1.40 mmol/L (0.36-0.75); O2 Saturation %Calculated-POC 100.0 % (94-98); PCO2 - POC 41 mmHg (35-48); PO2 - POC 520 mmHg (83-108); POC Comment CPB; Potassium - POC 5.6 mmol/L (3.5-5.1); Sodium - POC 135 mmol/L (136-145); Specimen Type - POC Arterial; pH - POC 7.44 (7.35-7.45)
[2024-09-27 10:12] LABS: ACT+ - POC 572 Seconds (82-134)
[2024-09-27 10:27] LABS: B.E. - POC -0.7 mmol/L; Glucose - POC 146 mg/dl (70-99); HCO3 - POC 24 mmol/L (21-28); Hematocrit - POC 37 % PCV (42-52); Hemodilution- POC Yes; Hemoglobin Calculated - POC 12.6; Ionized Calcium - POC 1.00 mmol/L (1.15-1.33); Lactate - POC 1.57 mmol/L (0.36-0.75); O2 Saturation %Calculated-POC 99.9 % (94-98); PCO2 - POC 40 mmHg (35-48); PO2 - POC 346 mmHg (83-108); POC Comment CPB; Potassium - POC 5.9 mmol/L (3.5-5.1); Sodium - POC 138 mmol/L (136-145); Specimen Type - POC Arterial; pH - POC 7.39 (7.35-7.45)
[2024-09-27 10:36] LABS: ACT+ - POC 575 Seconds (82-134)
[2024-09-27 10:48] LABS: B.E. - POC -0.2 mmol/L; Glucose - POC 142 mg/dl (70-99); HCO3 - POC 25 mmol/L (21-28); Hematocrit - POC 37 % PCV (42-52); Hemodilution- POC Yes; Hemoglobin Calculated - POC 12.6; Ionized Calcium - POC 1.01 mmol/L (1.15-1.33); Lactate - POC 1.01 mmol/L (0.36-0.75); O2 Saturation %Calculated-POC 100.0 % (94-98); PCO2 - POC 40 mmHg (35-48); PO2 - POC 403 mmHg (83-108); POC Comment CPB; Potassium - POC 4.9 mmol/L (3.5-5.1); Sodium - POC 142 mmol/L (136-145); Specimen Type - POC Arterial; pH - POC 7.40 (7.35-7.45)
--- NOTE | 2024-09-27 10:50 | CM ---
Patient in OR today for CT Surgery.
Reviewed initial assessment. Patient is independent of ADLS, lives with his sister and parents in a 1 [address], 2 KING, 0 DME.
Anticipated DC plan is for home w/ CT Transitional Care RN.
CM to follow.
[2024-09-27 10:55] LABS: ACT+ - POC 504 Seconds (82-134)
[2024-09-27 11:11] LABS: ACT+ - POC 609 Seconds (82-134)
[2024-09-27 11:57] LABS: ACT+ - POC 153 Seconds (82-134)
--- NOTE | 2024-09-27 12:01 | CON.INTV ---
Consultation
Consultation Request
Date/Time Consultation Requested: 09/27/2024 - 1143
Date/Time Consultation Performed: 09/27/2024 - 1199
Requesting Provider: Lolis Chanel NP
Performing Provider: Dr. Jiménez
Reason for Consultation: s/p SAVR
Medical History
-
Chief Complaint: Syncopal episode and chest pain
History of Present Illness:
54-year-old male active tobacco smoker with GERD and family history of CAD who presents with syncopal episode and chest pain. Patient was taking out the trash and felt dizzy, and when he came inside he went to go lay down when he lost consciousness
and was incontinent of urine. EMS called and patient brought here to the hospital for further evaluation. Troponin was elevated at 0.09 for which increased to a peak of 1.98 on 09/21. He was given a bolus of NS 0.0% x 1 L in the ER. Heparin drip
started in addition to aspirin + statin. Cardiology consulted, he underwent echo on 09/21 showing preserved LVEF at 55 to 60% with severe aortic stenosis with mean gradient of 69 mmHg with a suspected bicuspid aortic valve. He underwent left heart
catheterization on 09/21, showing no obstructive CAD. Cardiac surgery was consulted for aortic valve replacement. Spirometry performed on 09/23 which was normal. Patient had elevated LFTs and MRI abdomen showed a 1.1 cm liver lesion, with GI
consulted who thought it was due to hemangioma versus HCC (less likely). AFP and CEA were both WNL. Patient did require dental clearance for his AVR, and on 09/26 he underwent surgical extraction of tooth #15. Patient was consented for surgical
aortic valve replacement, which the patient agreed to. Today, he underwent upper 'J-type' hemisternotomy with AVR (#21 on�X mechanical). There were no complications, and he was transferred to the CVICU postoperatively for further care.
[facility] [employer] services consulted for additional management/recommendations.
When I saw the patient, he was resting in bed, intubated on SIMV at 16/500/40%/5, with PSV: 5, PIP 27 cmH2O, VTe 525 cc and breathing at 16 breaths/min. Heart rate 60, BP via A-line: 109/64, BP via NIBP: 161, PAP 34/20, CO/CI: 3.72/1.82,
respectively. SpO2: 99%. Mediastinal chest tubes x [address] Levophed at 2 mcg/min currently infusing in addition to insulin drip at 1 unit/hr and Precedex at 0.5 mcg/kg/hr.
PMHx: Tobacco smoke, family history of CAD, GERD
PSHx: Left lower leg surgery with pins from trauma
Past Medical History
Past Medical History: Other (Above as per HPI)
Past Surgical History: Other (Above as per HPI)
Social History
Tobacco: Smoker (3 cigarettes daily)
Alcohol: Occasional (8 beers on Wednesday)
Drug: None
Living: With Family
Employment: Employed
Family History
Family History: CAD (Mother + father (both had open heart surgeries in their 60s))
Allergies / Home Medications
Allergies
Allergy/AdvReac Type Severity Reaction Status Date / Time
No Known Allergies Allergy Verified 09/20/24 22:12
Home Medications
�Medication �Instructions �Recorded �Confirmed �Last Taken �Type
Vitamin 1 dose PO DAILY PRN pain 09/20/24 09/20/24 Unknown History
Review of Systems
-
Unable to Obtain full review of systems at this time due to: Patient Intubation
Vitals / Labs / Diagnostic Testing
Vital Signs
Temp Pulse Resp BP Pulse Ox
98.6 F 71 20 125/89 95
09/27/24 04:58 09/27/24 05:42 09/27/24 04:58 09/27/24 05:42 09/27/24 04:58
Diagnostic Testing:
Physical Exam
-
HEENT: Normocephalic, Anicteric and Other (ETT in place)
Cardiovascular: S1/S2 and Peripheral Edema (negative)
Respiratory: Wheeze (negative), Rales (negative), Rhonchi (negative), Non-Labored Respirations, Other (Mechanical breath sounds heard bilaterally) and Other (Mediastinal chest tubes x 2)
GI: Soft, Non Distended, Non Tender and Normal Bowel Sounds
Neurology: Tremors (negative) and Other (Sedated)
Skin: Warm and Dry
General: Respiratory Distress (negative), Comfortable, Fever (negative) and Chills (negative)
Assessment
-
Assessment: 54-year-old male active tobacco smoker with GERD and family history of CAD who presents with syncopal episode and chest pain. Patient was taking out the trash and felt dizzy, and when he came inside he went to go lay down when he lost
consciousness and was incontinent of urine. EMS called and patient brought here to the hospital for further evaluation. Troponin was elevated at 0.09 for which increased to a peak of 1.98 on 09/21. He was given a bolus of NS 0.0% x 1 L in the ER.
Heparin drip started in addition to aspirin + statin. Cardiology consulted, he underwent echo on 09/21 showing preserved LVEF at 55 to 60% with severe aortic stenosis with mean gradient of 69 mmHg with a suspected bicuspid aortic valve. He
underwent left heart catheterization on 09/21, showing no obstructive CAD. Cardiac surgery was consulted for aortic valve replacement. Spirometry performed on 09/23 which was normal. Patient had elevated LFTs and MRI abdomen showed a 1.1 cm liver
lesion, with GI consulted who thought it was due to hemangioma versus HCC (less likely). AFP and CEA were both WNL. Patient did require dental clearance for his AVR, and on 09/26 he underwent surgical extraction of tooth #15. Patient was consented
for surgical aortic valve replacement, which the patient agreed to. On 09/27/2024, he underwent upper 'J-type' hemisternotomy with AVR (#21 on�X mechanical). There were no complications, and he was transferred to the CVICU postoperatively for
further care. [employer] services consulted for additional management/recommendations.
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
Impression:
#Severe to critical aortic stenosis with bicuspid aortic valve s/p AVR (#21 on�X mechanical) � POD #0
#Acute anemia due to above
#Hyperglycemia (mild)
#Syncopal episode likely related to his severe�critical aortic stenosis with bicuspid aortic valve morphology
#Elevated troponin likely due to type II IA with demand ischemia
#Dyslipidemia
#Tobacco use disorder
#GERD
Plan:
Ventilator settings reviewed
FiO2 will be weaned to maintain SpO2 >90-94%
Minute ventilation will be adjusted
Arterial blood gases will be monitored
Spontaneous breathing trial will be attempted with hopeful extubation after anesthesia/sedation wear off
prn nebulized bronchodilators - not currently bronchospastic
Pulmonary artery catheter parameters will be followed
Pressors/antihypertensive/inotropes/diuretics will be provided as needed
Maintain MAP>65
Replete electrolytes with K>4, Mg>2
Of note, CA 19�9 antigen is pending and should be followed up
Monitor chest tube output (mediastinal chest tubes x 2)
Monitor hemoglobin
Monitor platelet count and coags
Transfuse blood products as needed to maintain Hb>7g/dL, plt>50k (given post-operative status)
CT surgery managing chest tubes
Monitor blood sugar to maintain euglycemia with goal BG 110-140
Insulin drip per protocol
Aspiration precautions
VAP prevention protocol
DVT prophylaxis
Early nutrition
Early mobilization
Critical care statement: A total of 41 minutes of critical care time was provided for this patient today. This includes management of ventilator, spontaneous breathing trial, arterial blood gases, pressors, of unstable vital signs, evaluation of the
patient at bedside, reviewing the patient's pertinent medical records including radiographs, microbiology, laboratory evaluations, and discussion with primary team and critical care nursing.
[2024-09-27] MEDS: LOW STRENGTH ASPIRIN PO (12:22)
[2024-09-27] MEDS: PROTONIX PO (12:23)
--- NOTE | 2024-09-27 12:24 | W.CVOR.SURPR ---
CVOR Surgeon Immed Pre Op
-
I have examined this patient prior to performance of the scheduled procedure.
The patient's condition is unchanged from the time of the dictated/written History and
Physical and the patient is able to undergo the scheduled procedure.
--- NOTE | 2024-09-27 12:24 | W.IMMPOSTOP ---
Addendum entered and electronically signed by Maxwell Ridley MD 09/27/24 13:11:
[id number]
Original Note:
Surgical Immed Post Op Note
-
CARDIAC SURGERY OPERATIVE NOTE:
Preoperative Dx:
[id number] (P/M: 115/69mmHg, JARED 0.5)
Suspect BAV
Postoperative Dx:
Same
Anders TYPE 1 BAV
Procedures:
1) Upper 'J-type' hemisternotomy out R 3rd ICS
2) Open exposure of R CFV
3) AVR (#21 On-X mechanical)
4) Sternal closure w/ wires/plate
Surgeon:
Maxwell Ridley M.D.
Assistants:
Ml Parekh P.A.-C.; open exposure of R CFV; assistant manager throughout; [id number] sternotomy closure
Bonita Kinney P.A.-C.; assistant terminal manager during sternotomy
Martha Ellison P.A.-C.; closure of R CFV exposure
Anesthesia:
Jose Luis Lopez M.D. and Dany ToddN.A.
Perfusion:
Taylor Segovia, C.C.P.; CPB 105min, XC: 83min
Findings:
Severely calcified Anders TYPE 1 BAV w/ fusion of LCC and RCC and bulk calcifications on ALL leaflets w/ significant circumferential annular extension.
#21 On-X valve placed w/ 13 interrupted, pledgetted valve sutures
LM and RM visualized >1cm above annulus
Post-SHANNAN: normal biventricular function, well-seated AVR w/ PVL/AI (washing jets); mean gradients 11-14mmHg
Implants:
On-X #21mm AVR: SN [id number]
Bipolar V-wire x 1 (sutured)
CT x 2
Sternal wires x 3
Sternal 'X' plate w/ 8 - 14mm screws
Complications:
None
Condition:
60 sinus (baseline bradycardic in 40-50s under GA; -0.6/-0.3); 112/66; 42/25; CVP 21; CO/CI: 3.8/1.6 (starting CI 2.0)
GTTS: levophed 4, insulin 1, precedex 0.5
Stable/guarded to CVICU
[2024-09-27 13:04] LABS: Glucose - Point of Care 157 mg/dl (70-99)
[2024-09-27 13:13] LABS: B.E. -3.3 mmol/L; HCO3 22.1 mmol/L (21-28); O2 Saturation % 98.0 % (94-98); PCO2 40 mmHg (35-48); PO2 142 mmHg (83-108); Potassium 4.7 mMOL/L (3.5-5.1); Sodium 134 mMOL/L (136-145)
[2024-09-27 13:14] LABS: Hematocrit 36.3 % (39.0-52.0); Hemoglobin 12.6 g/dL (13.0-18.0); Platelet Count 173 10^3/uL (130-400)
[2024-09-27] MEDS: VERSED 0.5 MG IV (13:18)
[2024-09-27 13:24] LABS: APTT 30.6 Sec (23.4-35.0); INR 1.86; PT 21.9 Sec (11.4-14.6)
--- NOTE | 2024-09-27 13:32 | PTCARENOTE ---
received pt from the CVOR into 2266, sinus rhythm/ sinus bradycardic on tele w HR 50'S, epicardial V wire tested and set to VVI 40/16, + peripheral pulses, left radial perla leveled and zeroed BP 110/64. RIght IJ cordis w swan floated to 47, PAP
36/20 CVP 14 CO 3.72 CI 1.82. Lungs diminished, #8 ETT/ 24cm at right lip, VENT SETTINGS: SIMV 40% 500 16 +5, POX 100%. Pt suctioned for small amount of blood tinged secretions. CT x2 w minimal amount of bloody secretions, lovett draining yellow.
Surgical site w aquacell dressing intact. Routine post op EKG, CXR and labs completed.
DRIPS: Levophed 2mcg/min
Precedex 0.5 mcg/kg/hr
Insulin titrated per glycemic protocol
[2024-09-27] MEDS: CALCIUM GLUCONATE 100 IV (13:43)
[2024-09-27] MEDS: NSS 500 IV (13:43)
[2024-09-27] MEDS: ANCEF 10 IV ×2 (13:44→13:49)
[2024-09-27 13:48] LABS: Blood Urea Nitrogen 15 mg/dl (9-20); Estimated Creatinine Clearance > 125 ml/min; Glucose 152 mg/dl (70-99); Magnesium 2.5 mg/dl (1.6-2.3)
[2024-09-27] MEDS: DILAUDID 0.5 MG IV ×3 (13:50→20:50)
[2024-09-27 14:03] LABS: Glucose - Point of Care 167 mg/dl (70-99)
--- NOTE | 2024-09-27 14:06 | W.PN.CD ---
Addendum entered and electronically signed by Mansoor Christie MD 09/27/24 15:52:
I saw and examined the patient.
The REGISTRATION REP's note was reviewed and I agree with the note.
Comment:
54-year-old man who presented with syncope and was found to have severe aortic stenosis. Now status post aortic valve replacement. Doing well after surgery.
Physical exam: Intubated, opens eyes to voice and nods to questions, regular rate and rhythm, no murmurs, clear lungs, no lower extremity edema, surgical bandage clean dry and intact, chest tubes in place
Postop ECG with new lateral T wave inversions
Continue routine postoperative care per CT surgery. Repeat ECG.
Original Note:
Today's Communication / Plan
-
Close post-op monitoring and care with weaning of drips and vent as tolerated per CT surgery/CVICU protocol
Impression / Plan
-
Severe aortic stenosis:
-now s/p mechanical AVR, Dr. Ridley 09/27/24
-intubated and sedated post-op
-pacer wire, Ruby, ARNIE in place
-post-op EKG with lateral t wave inversions, monitor. Tele with SR.
-on Levophed
-EF 50% on intra-op SHANNAN
-ASA and BB ordered post-op. Warfarin when able post-op with mechanical valve.
Syncope, in setting of severe aortic stenosis:
-surgery as above
-follow telemetry
Troponin elevation:
-Non-[place] troponin elevation likely related to severe aortic stenosis and syncope
-cath without obstructive coronary disease
Dyslipidemia:
-statin
-LDL goal <70
Smoking: smoking cessation has been reviewed
GERD: PPI
GI issues:
-GI is on the case
Physical Exam
Vital Signs/Labs
Vital Signs
Temp Pulse Resp BP Pulse Ox
98 F 60 16 100/61 99
09/27/24 13:00 09/27/24 13:25 09/27/24 13:25 09/27/24 13:09 09/27/24 13:56
09/26/24 09/27/24 09/28/24
06:59 06:59 06:59
Actual Weight 98.9 kg 97.4 kg
09/27/24 12:57
PT 21.9 Sec (11.4-14.6) H 09/27/24 12:57
INR 1.86 09/27/24 12:57
APTT 30.6 Sec (23.4-35.0) 09/27/24 12:57
Magnesium 2.5 mg/dl (1.6-2.3) H 09/27/24 12:57
Triglycerides 178 mg/dl (10-149) H 09/21/24 05:02
LDL Cholesterol, Calc 101 mg/dl 09/21/24 05:02
VLDL Cholesterol, Calc 35 mg/dl (0-30) H 09/21/24 05:02
HDL Cholesterol 37 mg/dl 09/21/24 05:02
09/20/24
22:04
Dfy-R-Himjeeugrlo Pept 558
Physical Exam
Constitutional: No acute distress
Cardiovascular: Rhythm & rate is regular
Respiratory: Other (intubated, ventilaed, lungs clear)
Neuro/Psych: Other (intubated and sedated)
Other: Skin (midsternal dressing CDI)
Data Reviewed
-
Date of Service: September 27, 2024
EKG: Tracing Personally Visualized and interpreted (SR with lateral t wave inversions) and Other (SR)
Labs: Labs Reviewed by me
[2024-09-27 14:32] LABS: ACT+ - POC > 1003 Seconds (82-134)
--- NOTE | 2024-09-27 14:44 | PTCARENOTE ---
placed on CPAP wean by RT.
[2024-09-27] MEDS: TYLENOL PO (14:52)
[2024-09-27] MEDS: LR 250 ML IV (14:52)
--- NOTE | 2024-09-27 14:53 | PTCARENOTE ---
CI 1.84, 250ml LR administered per CT BASSAM.
[2024-09-27 14:58] LABS: Glucose - Point of Care 143 mg/dl (70-99)
[2024-09-27 15:22] LABS: B.E. - POC -4.8 mmol/L; Blood Urea Nitrogen - POC 13 mg/dl (3-120); Chloride - POC 108 mmol/L (96-111); Creatinine - POC 0.61 mg/dl (0.3-1.0); Glucose - POC 144 mg/dl (70-99); HCO3 - POC 20 mmol/L (21-28); Hematocrit - POC 35 % PCV (42-52); Hemodilution- POC Yes; Hemoglobin Calculated - POC 12.0; Ionized Calcium - POC 1.28 mmol/L (1.15-1.33); Lactate - POC 2.66 mmol/L (0.36-0.75); O2 Saturation %Calculated-POC 98.5 % (94-98); PCO2 - POC 37 mmHg (35-48); PO2 - POC 119 mmHg (83-108); Potassium - POC 4.5 mmol/L (3.5-5.1); Sodium - POC 138 mmol/L (136-145); Specimen Type - POC Arterial; pH - POC 7.35 (7.35-7.45)
[2024-09-27] MEDS: SODIUM BICARBONATE 50 MEQ IV (15:32)
--- NOTE | 2024-09-27 15:33 | RESPNOTE ---
15:30 patient extubated and placed on 6L n.c. 99%
--- NOTE | 2024-09-27 15:35 | PTCARENOTE ---
PT EXTUBATED TO 6L NC, POX 100%.
[2024-09-27] MEDS: OFIRMEV 100 IV (16:03)
[2024-09-27] MEDS: PACERONE PO (16:04)
[2024-09-27] MEDS: ROXICODONE 5 MG PO ×2 (17:00→23:12)
[2024-09-27 17:08] LABS: Glucose - Point of Care 121 mg/dl (70-99)
[2024-09-27 17:15] LABS: Hematocrit 35.5 % (39.0-52.0); Hemoglobin 12.7 g/dL (13.0-18.0); Platelet Count 203 10^3/uL (130-400)
[2024-09-27] MEDS: LIPITOR 40 MG PO (18:06)
[2024-09-27 18:57] LABS: Glucose - Point of Care 135 mg/dl (70-99)
--- NOTE | 2024-09-27 19:20 | PTCARENOTE ---
Patient received from RN @ 1900. Patient lying in bed w/ call verde in reach. AOx3 SR w/ prolonged QT. BP 115/69 HR 72. Heart sounds audible w/ click. Radial and pedal pulses present. No edema noted. V-wires set to 40/16. Lungs diminished in
bases bilaterally. POX 96% 4L NC. 2x mediastinal chest tubes set to -20 suction draining red fluid. No crepitus, tidaling, or air leaks noted. No BM noted. Tolerating sips of water and ice chips. Beltran draining clear yellow urine. Mini
sternal dressing C/D/I. Chest tube dressing C/D/I. RIJ cordis w/ swan @ 47 CVP 12 PAP 35/16. Left radial A-line patent and intact. All lines leveled and zeroed. 2x right arm PIV patent and intact. Insulin and levo infusing per protocol. See
worklist for more details.
[2024-09-27] MEDS: ANCEF 5 IV (20:05)
[2024-09-27] MEDS: SENOKOT-S 1 TABLET PO (20:05)
[2024-09-27 21:04] LABS: Glucose - Point of Care 118 mg/dl (70-99)
[2024-09-27] MEDS: NEURONTIN 300 MG PO (21:54)
[2024-09-27] MEDS: PACERONE 200 MG PO (21:55)
[2024-09-27] MEDS: TYLENOL 1000 MG PO (21:56)
[2024-09-27 22:12] LABS: Glucose - Point of Care 106 mg/dl (70-99)
[2024-09-27 23:07] LABS: Glucose - Point of Care 108 mg/dl (70-99)
[2024-09-27 23:58] LABS: Glucose - Point of Care 109 mg/dl (70-99)
[2024-09-28] VITALS (18 sets, daily range): BP systolic 108–158; BP diastolic 59–80; PULSE 77; O2SAT 98; BMI 37.2
[2024-09-28] MEDS: LR 250 ML IV (00:11)
--- NOTE | 2024-09-28 00:15 | PTCARENOTE ---
Patient reassessed. SR w/ prolonged QT. Low urine output. CT PARQU[employer] FLOOR L[employer]ER Maik notified. 250 LR bolus given over [address] [employer] Maik. See MAR and Worklist for details.
[2024-09-28] MEDS: CARDENE 200 IV (00:55)
[2024-09-28 01:10] LABS: Glucose - Point of Care 113 mg/dl (70-99)
--- NOTE | 2024-09-28 01:14 | PTCARENOTE ---
Patient BP elevated. CT INSPECTOR PRECISION ASSEMBLY Maik gregg. Caprice stared per CT PAWAN Pleitez.
[2024-09-28] MEDS: DILAUDID 0.25 MG IV (01:23)
[2024-09-28] MEDS: NOVOLIN R INSULIN INFUSION 100 IV (01:54)
[2024-09-28 02:45] LABS: Hematocrit 34.1 % (39.0-52.0); Hemoglobin 11.6 g/dL (13.0-18.0); Mean Corp Hgb Conc. 34.0 g/dL (33.0-37.0); Mean Corpuscular Volume 93.9 fL (80.0-94.0); Platelet Count 181 10^3/uL (130-400); Red Cell Dist. Width 13.2 % (11.5-14.5)
[2024-09-28 02:56] LABS: INR 1.45; PT 18.1 Sec (11.4-14.6)
[2024-09-28 03:02] LABS: Glucose - Point of Care 99 mg/dl (70-99)
[2024-09-28 03:08] LABS: Blood Urea Nitrogen 20 mg/dl (9-20); Calcium 8.2 mg/dl (8.4-10.2); Carbon Dioxide 24 mmol/L (22-30); Chloride 109 mmol/L (98-107); Estimated Creatinine Clearance > 125 ml/min; Glucose 111 mg/dl (70-99); Magnesium 1.9 mg/dl (1.6-2.3); Potassium 4.4 mmol/L (3.5-5.1); Sodium 136 mmol/L (135-145); eGFR > 60.00
[2024-09-28] MEDS: ANCEF 5 IV ×2 (03:32→12:49)
[2024-09-28] MEDS: ROXICODONE 5 MG PO ×3 (03:32→16:24)
--- NOTE | 2024-09-28 03:56 | W.PN.CT ---
Today's Communication / Plan
-
- POD #1
- Doing well. No major events overnight. pain difficult to control
- Tele review: NSR
- Gtt's: nicardipine @ 5
- CI: 2.92 CO: 5.95
- CT 2M 85/245 in 12/24 hrs
- UOP 280/740 in 12/24 hrs
- wean down/off O2, IS use reinforced
- Continue current meds:
- Bowel regimen
- OOB, ambulate as tolerated
Assessment / Plan
-
Severe/critical and Bicuspid AV s/p AVR (#21 On-X mechanical) on 09/27/[address] Ridley POD #1
Post-SHANNAN: normal biventricular function, well-seated AVR w/ PVL/AI (washing jets); mean gradients 11-14mmHg.
-Severe
-Non-obstructive CAD, per Cath 09/21/24
-Non [place] troponin elevation
-LVEF 60-65%
-Hyperlipidemia
-Class 2 obesity (BMI 36.3)
-GERD
-Active tobacco use (3 cigs/day)
-Poor dentition
-ETOH use
-Transaminitis
Subjective
Procedure
s/p AVR (#21 On-X mechanical) on 09/27/[address] Ridley
-
Date of Service: September 28, 2024
Objective Data
-
Lab Results
09/28/24 02:39
09/28/24 02:39
PT 18.1 Sec (11.4-14.6) H 09/28/24 02:39
INR 1.45 09/28/24 02:39
APTT 30.6 Sec (23.4-35.0) 09/27/24 12:57
Vital Signs
Vital Signs
Temp Pulse Resp BP Pulse Ox
98.4 F 72 25 108/62 96
09/28/24 03:00 09/28/24 03:40 09/28/24 03:40 09/28/24 02:49 09/28/24 03:40
CT Intake/Output/Weight
09/27/24 09/27/24 09/28/24
06:59 18:59 06:59
Intake Total 240 / 240 625.7 / 977.6 351.9 / 977.6
Output Total 620 / 900 280 / 900
Balance 240 / 240 5.7 / 77.6 71.9 / 77.6
SaO2: 96
Physical Exam
-
General: Awake, Oriented and AOx3
Cardiovascular: Regular rate & rhythm, No Murmurs and No Rub
Respiratory: Clear and Equal
Sternum: Stable
Incision: Clean, Dry and Intact
Extremities: No Edema and No Erythema
Data Reviewed
-
Lab Results: Results Reviewed
Medications: Active Meds Reviewed
Chest X-Ray: Report Reviewed
ECG: Report Reviewed
--- NOTE | 2024-09-28 04:23 | PTCARENOTE ---
Patient reassessed. BP continues to be elevated CT MEDICAL REIMBURSEMENT SPECIALIST Maik aware. Cardene titrating per protocol. Pain management see MAR for details.
[2024-09-28 04:57] LABS: Glucose - Point of Care 121 mg/dl (70-99)
[2024-09-28] MEDS: TYLENOL 1000 MG PO ×3 (05:03→22:11)
[2024-09-28 06:20] LABS: B.E. - POC 0.7 mmol/L; Glucose - POC 139 mg/dl (70-99); HCO3 - POC 25 mmol/L (21-28); Hematocrit - POC 38 % PCV (42-52); Hemodilution- POC Yes; Hemoglobin Calculated - POC 12.8; Ionized Calcium - POC 1.03 mmol/L (1.15-1.33); Lactate - POC 2.54 mmol/L (0.36-0.75); O2 Saturation %Calculated-POC 99.9 % (94-98); PCO2 - POC 40 mmHg (35-48); PO2 - POC 343 mmHg (83-108); POC Comment WARM; Potassium - POC 4.7 mmol/L (3.5-5.1); Sodium - POC 142 mmol/L (136-145); Specimen Type - POC Arterial; pH - POC 7.41 (7.35-7.45)
[2024-09-28 06:20] LABS: B.E. - POC -3.5 mmol/L; Glucose - POC 150 mg/dl (70-99); HCO3 - POC 22 mmol/L (21-28); Hematocrit - POC 31 % PCV (42-52); Hemodilution- POC Yes; Hemoglobin Calculated - POC 10.5; Ionized Calcium - POC 1.28 mmol/L (1.15-1.33); Lactate - POC 1.74 mmol/L (0.36-0.75); O2 Saturation %Calculated-POC 100.0 % (94-98); PCO2 - POC 41 mmHg (35-48); PO2 - POC 394 mmHg (83-108); Potassium - POC 4.0 mmol/L (3.5-5.1); Sodium - POC 142 mmol/L (136-145); Specimen Type - POC Arterial; pH - POC 7.34 (7.35-7.45)
[2024-09-28 06:58] LABS: Glucose - Point of Care 122 mg/dl (70-99)
--- NOTE | 2024-09-28 08:30 | W.PN.INTV ---
Today's Communication / Plan
Recommendations
Up OOB as tolerated
Management of chest tube per CT surgery team
Goal SpO2 >90-94%
Encourage incentive spirometer
Goal BG 110�140
Cardiac rehab
Patient is now being transitioned to CVICU-telemetry status. No additional recommendations at this time. Resource Forester/Pulmonary service will now sign off. Please reconsult if there are any additional questions/concerns, or if patient's respiratory
status deteriorates.
Assessment
-
Assessment: 54-year-old male active tobacco smoker with GERD and family history of CAD who presents with syncopal episode and chest pain. Patient was taking out the trash and felt dizzy, and when he came inside he went to go lay down when he lost
consciousness and was incontinent of urine. EMS called and patient brought here to the hospital for further evaluation. Troponin was elevated at 0.09 for which increased to a peak of 1.98 on 09/21. He was given a bolus of NS 0.0% x 1 L in the ER.
Heparin drip started in addition to aspirin + statin. Cardiology consulted, he underwent echo on 09/21 showing preserved LVEF at 55 to 60% with severe aortic stenosis with mean gradient of 69 mmHg with a suspected bicuspid aortic valve. He
underwent left heart catheterization on 09/21, showing no obstructive CAD. Cardiac surgery was consulted for aortic valve replacement. Spirometry performed on 09/23 which was normal. Patient had elevated LFTs and MRI abdomen showed a 1.1 cm liver
lesion, with GI consulted who thought it was due to hemangioma versus HCC (less likely). AFP and CEA were both WNL. Patient did require dental clearance for his AVR, and on 09/26 he underwent surgical extraction of tooth #15. Patient was consented
for surgical aortic valve replacement, which the patient agreed to. On 09/27/2024, he underwent upper 'J-type' hemisternotomy with AVR (#21 on�X mechanical). There were no complications, and he was transferred to the CVICU postoperatively for
further care. Resource Forester services consulted for additional management/recommendations.
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
Impression:
#Severe to critical aortic stenosis with bicuspid aortic valve s/p AVR (#21 on�X mechanical) � POD #1
#Acute anemia due to above
#Hyperglycemia - improved
#Syncopal episode likely related to his severe�critical aortic stenosis with bicuspid aortic valve morphology
#Elevated troponin likely due to type II TN with demand ischemia
#Dyslipidemia
#Tobacco use disorder
#GERD
Plan:
Patient successfully extubated on 09/27/2024, and is now on room air breathing comfortably, saturating 93-94%
Maintain SpO2 >90-94%
prn nebulized bronchodilators - not currently bronchospastic
Encourage incentive spirometer q1hr while awake
Maintain MAP>65
Replete electrolytes with K>4, Mg>2
Of note, CA 19�9 antigen is pending and should be followed up
Monitor chest tube output (mediastinal chest tubes x 2)
Monitor hemoglobin
Monitor platelet count and coags
Transfuse blood products as needed to maintain Hb>7g/dL, plt>50k (given post-operative status)
CT surgery managing chest tubes
Monitor blood sugar to maintain euglycemia with goal BG 110-140
Insulin drip now weaned off
Aspiration precautions
DVT prophylaxis
Early nutrition
Early mobilization
Patient is now being transitioned to CVICU-telemetry status. No additional recommendations at this time. Resource Forester/Pulmonary service will now sign off. Thank you for allowing us to be involved in the care of this patient. Please reconsult if
there are any additional questions/concerns, or if patient's respiratory status deteriorates.
Total time spent today was 57 minutes for this encounter. Time includes reviewing laboratory test/imaging results, reviewing pertinent medical records, obtaining and reviewing medical history, performing an appropriate exam, ordering medications,
tests and procedures. Time also includes documentation of this encounter, coordinating patient care and communicating with other healthcare professionals. Total time does not include separately billed tests performed on this date of service.
Subjective Dataa
Subjective Data
Date of Service:
Date of Service: September 28, 2024
Chief Complaint: Resource Forester Follow Up
Subjective:
Patient seen today at bedside. Currently on room air breathing comfortably. Mediastinal chest tubes x [address] Insulin drip now off. No overnight events reported.
Review of Systems
General: Other (Negative unless mentioned above)
Objective Data
Data Reviewed
Vital Signs / I&O / Oxygen:
Vital Signs
Temp Pulse Resp BP Pulse Ox
99.1 F 86 16 115/67 92
09/28/24 09:00 09/28/24 09:04 09/28/24 09:00 09/28/24 09:04 09/28/24 09:00
Intake and Output
09/27/24 09/28/24 09/29/24
06:59 06:59 06:59
Intake Total 240 / 240 1169.2 / 1169.2 92.0 / 92.0
Output Total 1065 / 1065 70 / 70
Balance 240 / 240 104.2 / 104.2 22.0 / 22.0
SaO2 [SIMV] 100
SaO2 92
Nasal Cannula flow liters per 2
minute
Physical Exam
General: Respiratory Distress (negative), Comfortable, Chills (negative) and Sweats (negative)
HEENT: Normocephalic and Anicteric
Cardiovascular: S1-S2 and Peripheral Edema (negative)
Respiratory: Wheeze (negative), Crackles (negative), Rhonchi (negative) and Non-Labored Respirations
GI: Soft, Non Distended, Non Tender and Normal Bowel Sounds
Neurology: Awake, Alert and Tremors (negative)
Skin: Warm, Dry, Cyanosis (negative) and Jaundice (negative)
Labs/Micro/Reports
Lab Data
09/28/24 02:39
09/28/24 02:39
Laboratory Results
09/27/24 09/28/24
12:57 02:39
PT 21.9 H 18.1 H
INR 1.86 1.45
APTT 30.6
pH 7.35
pCO2 40
pO2 142 H
HCO3 22.1
O2 Delivery Level
[2024-09-28] MEDS: PROTONIX 40 MG PO (08:47)
[2024-09-28] MEDS: LOPRESSOR 12.5 MG PO (08:47)
[2024-09-28] MEDS: PACERONE 200 MG PO ×3 (08:47→22:11)
[2024-09-28] MEDS: MAGNESIUM OXIDE 500 MG PO ×2 (08:47→20:20)
[2024-09-28] MEDS: NEURONTIN 300 MG PO ×3 (08:48→22:12)
[2024-09-28] MEDS: SENOKOT-S 1 TABLET PO ×2 (08:48→20:20)
[2024-09-28] MEDS: LOW STRENGTH ASPIRIN 81 MG PO (08:48)
[2024-09-28] MEDS: BACTROBAN 2% OINTMENT 1 APPLIC NASAL ×2 (08:49→20:20)
[2024-09-28 10:13] LABS: Glucose - Point of Care 113 mg/dl (70-99)
--- NOTE | 2024-09-28 10:27 | PTCARENOTE ---
assumed care of pt from previous shift RN, sinus rhythm on tele w insulated V wire. VSS, pt delined and assisted OOB to chair. Minimal drainage from CTs , lovett draining yellow. Surgical sites stable. Cordis and PIV flushing easily. pt medicated for
pain. plan of care reviewed and questions encouraged.
--- NOTE | 2024-09-28 11:13 | W.PN.CD ---
Today's Communication / Plan
-
hemodynamically stable.
- Coumadin has been started. Dosing being directed by CT surgery
- At discharge plans regarding anticoagulation will need to be clearly outlined to the patient. With language barrier we will need to have a main shoes salesperson to communicate issues related to Coumadin dosing and INR. Patient will also need
additional education regarding Coumadin since it is a new medication for him.
Impression / Plan
-
Severe aortic stenosis:
-now s/p mechanical AVR ( On-X mechanical), Dr. Ridley 09/27/24
Stable and in sinus rhythm
-EF 50% on intra-op SHANNAN
-ASA and BB ordered post-op.
- Coumadin has been started. Dosing being directed by CT surgery
- At discharge plans regarding anticoagulation will need to be clearly outlined to the patient. With language barrier we will need to have a main shoes salesperson to communicate issues related to Coumadin dosing and INR. Patient will also need
additional education regarding Coumadin since it is a new medication for him.
.
Syncope, in setting of severe aortic stenosis:
-surgery as above
-follow telemetry
Dyslipidemia:
-statin
-LDL goal <70
Smoking: smoking cessation has been reviewed
GERD: PPI
GI issues:
-GI is on the case
Physical Exam
Vital Signs/Labs
Vital Signs
Temp Pulse Resp BP Pulse Ox
99.1 F 75 16 119/67 92
09/28/24 09:00 09/28/24 10:00 09/28/24 09:00 09/28/24 09:48 09/28/24 11:05
09/27/24 09/28/24 09/29/24
06:59 06:59 06:59
Actual Weight 97.4 kg 101.3 kg
09/28/24 02:39
09/28/24 02:39
PT 18.1 Sec (11.4-14.6) H 09/28/24 02:39
INR 1.45 09/28/24 02:39
APTT 30.6 Sec (23.4-35.0) 09/27/24 12:57
Magnesium 1.9 mg/dl (1.6-2.3) 09/28/24 02:39
Triglycerides 178 mg/dl (10-149) H 09/21/24 05:02
LDL Cholesterol, Calc 101 mg/dl 09/21/24 05:02
VLDL Cholesterol, Calc 35 mg/dl (0-30) H 09/21/24 05:02
HDL Cholesterol 37 mg/dl 09/21/24 05:02
09/20/24
22:04
Eru-M-Xqhaxryqyix Pept 558
Physical Exam
Constitutional: No acute distress
Cardiovascular: Rhythm & rate is regular
Respiratory: Lungs clear to auscul. and Rhonchi Absent
GI: Soft
Data Reviewed
-
Date of Service: September 28, 2024
Medical Decision Making: Reviewed Test Results
Medical Tests (PFT, Pathology etc): Report Reviewed by me
[2024-09-28] MEDS: LIDOCAINE 4% PATCH 1 PATCH TOPICAL (11:29)
--- NOTE | 2024-09-28 12:08 | PTCARENOTE ---
lovett removed, assisted pt w walking in the hallway, tolerated well. VSS, sinus rhythm maintained on tele.
[2024-09-28] MEDS: NSS IV (12:49)
[2024-09-28 14:08] LABS: Glucose - Point of Care 100 mg/dl (70-99)
--- NOTE | 2024-09-28 15:05 | CM ---
CM following for DC planning needs.
Patient POD#1 .
Antic. DC plan remains for home w/ CT Transitional Care RN.
CM to follow.
[2024-09-28] MEDS: COUMADIN 5 MG PO (16:24)
[2024-09-28] MEDS: LIPITOR 40 MG PO (16:24)
--- NOTE | 2024-09-28 16:53 | PTCARENOTE ---
VSS, pt medicated for pain, minimal output from CTs
[2024-09-28] MEDS: LOPRESSOR 25 MG PO (18:03)
--- NOTE | 2024-09-28 19:35 | PTCARENOTE ---
Patient received from RN @ 1900. Patient sitting in chair w/ call verde in reach. NSR BP 142/75 HR 78. Heart sounds audible w/ click noted. Trace lower edema noted. Radial and pedal pulses present. V-wires insulated. 2x mediastinal chest tubes
set to -20 suction draining red fluid. No crepitus tidaling or air leaks noted. Lung bases diminished bilaterally. IS 1500. POX 93% RA. Voiding clear yellow urine. Bowel sounds hypoactive. Diminished appetite. No BM noted. All surgical sites
C/D/I. RIJ cordis patent and intact. Right upper and lower PIV patent and intact. See worklist for more details.
[2024-09-28] MEDS: REMOVE LIDOCAINE PATCH 1 PATCH REMOVE (20:20)
--- NOTE | 2024-09-28 23:00 | PTCARENOTE ---
report received from previous RN, walking rounds done. pt sleeping. VSS. NSR on monitor, HR 70s. epicardial V wire intact and insulated. POX 95% on room air. CT x 2 intact to -20cm wall suction, drainage WNL, no air leak or crepitus present. pt
voids in urinal without difficulty. RIJ cordis intact w KVO infusing. all surgical sites stable. see worklist for full assessment, VS, and interventions.
[2024-09-29] VITALS (7 sets, daily range): BP systolic 115–137; BP diastolic 61–69; PULSE 70; O2SAT 92–98; BMI 37.4
[2024-09-29 01:46] LABS: CA 19-9 16 U/mL (<=35)
[2024-09-29] MEDS: ROXICODONE 5 MG PO ×3 (02:33→17:27)
[2024-09-29] MEDS: DILAUDID 0.5 MG IV (02:33)
[2024-09-29 02:51] LABS: Hematocrit 30.2 % (39.0-52.0); Hemoglobin 10.6 g/dL (13.0-18.0); Mean Corp Hgb Conc. 35.1 g/dL (33.0-37.0); Mean Corpuscular Volume 94.1 fL (80.0-94.0); Platelet Count 189 10^3/uL (130-400); Red Cell Dist. Width 13.4 % (11.5-14.5)
[2024-09-29 03:01] LABS: INR 2.09; PT 24.0 Sec (11.4-14.6)
[2024-09-29 03:19] LABS: Blood Urea Nitrogen 23 mg/dl (9-20); Calcium 7.9 mg/dl (8.4-10.2); Carbon Dioxide 25 mmol/L (22-30); Chloride 102 mmol/L (98-107); Estimated Creatinine Clearance 101 ml/min; Glucose 137 mg/dl (70-99); Magnesium 2.0 mg/dl (1.6-2.3); Potassium 3.9 mmol/L (3.5-5.1); Sodium 132 mmol/L (135-145); eGFR > 60.00
[2024-09-29] MEDS: TYLENOL 1000 MG PO ×3 (06:04→20:39)
--- NOTE | 2024-09-29 08:30 | W.PN.UPDATE ---
Update Note
Progress Note Update
Patient's MRI was reviewed at [facility] hepatic tumor board:
They believe it is a hemangioma. Sometimes on Eovist study hemangiomas can look like HCC. They recommended another MRI with extracellular gadolinium
This can be done outpatient
--- NOTE | 2024-09-29 08:42 | W.PN.CT ---
Today's Communication / Plan
-
-pod #2
-no issues overnight
-got 5 mg Coumadin on 09/28 (1st dose). INR today 2.09
-CT outputs: 2 meds 175/235 in 12/24 hrs (serosang. fluid)
-wt is up 10 lbs - diurese
-encourage IS, OOB
Assessment / Plan
-
Severe/critical and Bicuspid AV s/p AVR (#21 On-X mechanical) on 09/27/[address] Ridley POD #2
Post-SHANNAN: normal biventricular function, well-seated AVR w/ PVL/AI (washing jets); mean gradients 11-14mmHg.
-Severe
-Non-obstructive CAD, per Cath 09/21/24
-Non [place] troponin elevation
-LVEF 60-65%
-Hyperlipidemia
-Class 2 obesity (BMI 36.3)
-GERD
-Active tobacco use (3 cigs/day)
-Poor dentition
-ETOH use
-Transaminitis
-Acute postop blood loss anemia
-Acute postop atelectasis/pulmonary insufficiency
-Acute postop hypovolemia with subsequent hypervolemia
Discussed patient care with: Nursing and Care Team
Subjective
Procedure
s/p AVR (#21 On-X mechanical) on 09/27/[address] Ridley
-
Date of Service: September 29, 2024
Objective Data
-
Lab Results
09/29/24 02:41
09/29/24 02:41
PT 24.0 Sec (11.4-14.6) H 09/29/24 02:41
INR 2.09 09/29/24 02:41
APTT 30.6 Sec (23.4-35.0) 09/27/24 12:57
Vital Signs
Vital Signs
Temp Pulse Resp BP Pulse Ox
98.1 F 84 17 137/69 97
09/28/24 22:37 09/29/24 06:05 09/28/24 22:37 09/29/24 06:05 09/29/24 00:00
CT Intake/Output/Weight
09/28/24 09/29/24 09/29/24
18:59 06:59 18:59
Intake Total 202.0 / 262.0 60 / 262.0
Output Total 230 / 415 185 / 415
Balance -28.0 / -153.0 -125 / -153.0
SaO2: 97
Physical Exam
-
General: Awake and AOx3
Cardiovascular: Regular rate & rhythm, No Murmurs and No Rub
Respiratory: Rales (at bases b/l. No wheeze) and Decreased Breath Sounds
Sternum: Stable
Incision: Clean, Dry and Intact
Extremities: No Edema
Data Reviewed
-
Lab Results: Results Reviewed
Medications: Active Meds Reviewed
Chest X-Ray: Report Reviewed and Image Reviewed
ECG: Report Reviewed and Image Reviewed
--- NOTE | 2024-09-29 09:00 | PTCARENOTE ---
PT aaox4 w/ complaints of pain; NSR on monitor; vss; RA 97% O2; GI and WNL; all surgical incisions CDI; RIJC and PIV WNL; see worklist for detailed assessment
[2024-09-29] MEDS: PROTONIX 40 MG PO (09:16)
[2024-09-29] MEDS: MAGNESIUM OXIDE 500 MG PO ×2 (09:17→20:38)
[2024-09-29] MEDS: SENOKOT-S 1 TABLET PO ×2 (09:17→20:38)
[2024-09-29] MEDS: LOPRESSOR 25 MG PO (09:17)
[2024-09-29] MEDS: LASIX 40 MG IV (09:18)
[2024-09-29] MEDS: PACERONE 200 MG PO ×2 (09:18→17:27)
[2024-09-29] MEDS: LOW STRENGTH ASPIRIN 81 MG PO (09:18)
[2024-09-29] MEDS: LIDOCAINE 4% PATCH TOPICAL (09:18)
[2024-09-29] MEDS: NEURONTIN 300 MG PO ×3 (09:18→20:38)
[2024-09-29] MEDS: BACTROBAN 2% OINTMENT 1 APPLIC NASAL ×2 (09:18→20:38)
--- NOTE | 2024-09-29 09:38 | W.PN.CD ---
Today's Communication / Plan
-
Continue current medications
INR uptrending, transition CT Nurse to follow post op INR
Impression / Plan
-
Severe aortic stenosis:
-now s/p mechanical AVR ( On-X mechanical), Dr. Ridley 09/27/24
-Stable and in sinus rhythm
-EF 50% on intra-op SHANNAN
-ASA and BB ordered post-op.
- Coumadin has been started. Dosing being directed by CT surgery
- At discharge plans regarding anticoagulation will need to be clearly outlined to the patient. With language barrier we will need to have a main customer contact sales associate to communicate issues related to Coumadin dosing and INR. Patient will also need
additional education regarding Coumadin since it is a new medication for him. Discussed this with family at the bedside.
.
Syncope, in setting of severe aortic stenosis:
-surgery as above
-follow telemetry
Dyslipidemia:
-statin
-LDL goal <70
Smoking: smoking cessation has been reviewed
GERD: PPI
GI issues:
-GI is on the case
Physical Exam
Vital Signs/Labs
Vital Signs
Temp Pulse Resp BP Pulse Ox
98.1 F 84 17 137/69 97
09/28/24 22:37 09/29/24 06:05 09/28/24 22:37 09/29/24 06:05 09/29/24 08:47
09/28/24 09/29/24 09/30/24
06:59 06:59 06:59
Actual Weight 223 lb 5.252 oz 224 lb 10.417 oz
09/29/24 02:41
09/29/24 02:41
PT 24.0 Sec (11.4-14.6) H 09/29/24 02:41
INR 2.09 09/29/24 02:41
APTT 30.6 Sec (23.4-35.0) 09/27/24 12:57
Magnesium 2.0 mg/dl (1.6-2.3) 09/29/24 02:41
Triglycerides 178 mg/dl (10-149) H 09/21/24 05:02
LDL Cholesterol, Calc 101 mg/dl 09/21/24 05:02
VLDL Cholesterol, Calc 35 mg/dl (0-30) H 09/21/24 05:02
HDL Cholesterol 37 mg/dl 09/21/24 05:02
09/20/24
22:04
Fus-V-Wnobjckhcvg Pept 558
Physical Exam
Constitutional: No acute distress
Cardiovascular: Rhythm & rate is regular, Pedal edema is absent, JVD pressure is normal, Systolic murmur absent, Diastolic murmur absent and Pedal edema present
Respiratory: Respiratory effort normal, Lungs clear to auscul., Wheeze Absent, Crackles Absent and Rhonchi Absent
Neuro/Psych: AO x 3
Data Reviewed
-
Date of Service: September 29, 2024
EKG: Other (tele sinus)
--- NOTE | 2024-09-29 11:00 | PTCARENOTE ---
CT x4 removed V wires cut w/ PA; all vitals WNL; PT mentating normally; see worklist for detailed assessment;
[2024-09-29] MEDS: COLCHICINE 0.6 MG PO (11:41)
[2024-09-29] MEDS: NSS IV (11:57)
[2024-09-29] MEDS: LIPITOR 40 MG PO (17:27)
[2024-09-29] MEDS: COUMADIN 1 MG PO (17:35)
--- NOTE | 2024-09-29 18:17 | PTCARENOTE ---
No change from previous assessment
--- NOTE | 2024-09-29 20:00 | PTCARENOTE ---
assumed care of pt from previous RN. pt A&Ox4, resting in bed at time of assessment. junctional rhythm on tele-monitor, rates in the 70s. POX 92% on RA. abd s/n, round, obese, +BS. voiding clear, yellow colored urine. all surgical sites stable. R IJ
cordis w/ KVO. PIV intact. see worklist for complete nursing assessment, interventions, VS, and I&Os.
[2024-09-29] MEDS: REMOVE LIDOCAINE PATCH REMOVE (20:39)
[2024-09-30] VITALS (10 sets, daily range): BP systolic 96–134; BP diastolic 58–80; PULSE 75; O2SAT 94; BMI 37.3
--- NOTE | 2024-09-30 00:19 | PTCARENOTE ---
assessment remains unchanged. VSS.
--- NOTE | 2024-09-30 04:30 | PTCARENOTE ---
no acute changes. VSS. AM labs collected and sent.
[2024-09-30] MEDS: ROXICODONE 2.5 MG PO (04:37)
[2024-09-30] MEDS: TYLENOL 1000 MG PO ×3 (04:37→19:51)
[2024-09-30 04:40] LABS: Hematocrit 27.7 % (39.0-52.0); Hemoglobin 9.5 g/dL (13.0-18.0); Mean Corp Hgb Conc. 34.3 g/dL (33.0-37.0); Mean Corpuscular Volume 94.2 fL (80.0-94.0); Platelet Count 187 10^3/uL (130-400); Red Cell Dist. Width 13.2 % (11.5-14.5)
[2024-09-30 04:59] LABS: INR 2.30; PT 25.7 Sec (11.4-14.6)
[2024-09-30 05:05] LABS: Blood Urea Nitrogen 20 mg/dl (9-20); Calcium 7.9 mg/dl (8.4-10.2); Carbon Dioxide 28 mmol/L (22-30); Chloride 101 mmol/L (98-107); Estimated Creatinine Clearance > 125 ml/min; Glucose 113 mg/dl (70-99); Magnesium 2.2 mg/dl (1.6-2.3); Potassium 4.2 mmol/L (3.5-5.1); Sodium 131 mmol/L (135-145); eGFR > 60.00
--- NOTE | 2024-09-30 08:17 | W.PN.CT ---
Today's Communication / Plan
-
-pod #3
-no issues overnight
-monitor rhythm - in and out of accelerated junctional rhythm. No kristie or pauses overnight. Holding BB and Amio. Has no pw
-got 5 and 1 mg of Coumadin. INR today 2.30
-diuresed with 40 iv Lasix on 09/29 (UO 2500+ in 24 hrs)- continue
-encourage IS, OOB
Assessment / Plan
-
Severe/critical and Bicuspid AV s/p AVR (#21 On-X mechanical) on 09/27/[address] Ridley POD #3
Post-SHANNAN: normal biventricular function, well-seated AVR w/ PVL/AI (washing jets); mean gradients 11-14mmHg.
-Severe
-Non-obstructive CAD, per Cath 09/21/24
-Non [place] troponin elevation
-LVEF 60-65%
-Hyperlipidemia
-Class 2 obesity (BMI 36.3)
-GERD
-Active tobacco use (3 cigs/day)
-Poor dentition
-ETOH use
-Transaminitis
-Acute postop blood loss anemia
-Acute postop atelectasis/pulmonary insufficiency
-Acute postop hypovolemia with subsequent hypervolemia
Discussed patient care with: Nursing and Care Team
Subjective
Procedure
s/p AVR (#21 On-X mechanical) on 09/27/[address] Ridley
-
Date of Service: September 30, 2024
Objective Data
-
Lab Results
09/30/24 04:29
09/30/24 04:29
PT 25.7 Sec (11.4-14.6) H 09/30/24 04:29
INR 2.30 09/30/24 04:29
APTT 30.6 Sec (23.4-35.0) 09/27/24 12:57
Vital Signs
Vital Signs
Temp Pulse Resp BP Pulse Ox
98.2 F 69 16 132/80 93
09/30/24 04:15 09/30/24 06:00 09/30/24 04:15 09/30/24 04:13 09/30/24 04:15
CT Intake/Output/Weight
09/29/24 09/30/24 09/30/24
18:59 06:59 18:59
Intake Total 100 / 100
Output Total 2300 / 2500 200 / 2500
Balance -2300 / -2400 -100 / -2400
SaO2: 93
Physical Exam
-
General: Awake and AOx3
Cardiovascular: Regular rate & rhythm, No Murmurs and No Rub
Respiratory: Rales (at bases b/l. No wheeze) and Decreased Breath Sounds
Sternum: Stable
Incision: Clean, Dry and Intact
Extremities: No Edema
Data Reviewed
-
Lab Results: Results Reviewed
Medications: Active Meds Reviewed
Chest X-Ray: Report Reviewed and Image Reviewed
ECG: Report Reviewed and Image Reviewed
[2024-09-30] MEDS: PROTONIX 40 MG PO (08:49)
[2024-09-30] MEDS: SENOKOT-S 1 TABLET PO ×2 (08:49→19:51)
[2024-09-30] MEDS: COLCHICINE 0.6 MG PO (08:49)
[2024-09-30] MEDS: NEURONTIN 300 MG PO ×3 (08:49→19:51)
[2024-09-30] MEDS: MAGNESIUM OXIDE 500 MG PO ×2 (08:49→19:51)
[2024-09-30] MEDS: LOW STRENGTH ASPIRIN 81 MG PO (08:49)
[2024-09-30] MEDS: BACTROBAN 2% OINTMENT 1 APPLIC NASAL ×2 (08:50→19:51)
[2024-09-30] MEDS: LIDOCAINE 4% PATCH TOPICAL (08:50)
[2024-09-30] MEDS: MILK OF MAGNESIA 30 ML PO (08:53)
--- NOTE | 2024-09-30 09:00 | W.PN.CD ---
Today's Communication / Plan
-
- Watch telemetry with junctional rhythm.
Impression / Plan
-
Severe aortic stenosis:
-now s/p mechanical AVR ( On-X mechanical), Dr. Ridley 09/27/24
-Stable and in sinus rhythm
-EF 50% on intra-op SHANNAN
-ASA and BB ordered post-op.
- Coumadin has been started. Dosing being directed by CT surgery
- At discharge plans regarding anticoagulation will need to be clearly outlined to the patient. With language barrier we will need to have a main contact lens cutter to communicate issues related to Coumadin dosing and INR. Patient will also need
additional education regarding Coumadin since it is a new medication for him. Discussed this with family at the bedside.
.
Syncope, in setting of severe aortic stenosis:
-surgery as above
-follow telemetry
-Junctional escape rhythm - Competing junctional with sinus
- Junctional rates are elevated
- Will restart Metoprolol 12.5 mg BID and continue amiodarone.
Dyslipidemia:
-statin
-LDL goal <70
Smoking: smoking cessation has been reviewed
GERD: PPI
GI issues:
-GI is on the case
Physical Exam
Vital Signs/Labs
Vital Signs
Temp Pulse Resp BP Pulse Ox
98.8 F 70 16 96/60 96
09/30/24 08:45 09/30/24 08:45 09/30/24 08:45 09/30/24 08:45 09/30/24 08:45
09/29/24 09/30/24 10/01/24
06:59 06:59 06:59
Actual Weight 101.9 kg 101.7 kg
09/30/24 04:29
09/30/24 04:29
PT 25.7 Sec (11.4-14.6) H 09/30/24 04:29
INR 2.30 09/30/24 04:29
APTT 30.6 Sec (23.4-35.0) 09/27/24 12:57
Magnesium 2.2 mg/dl (1.6-2.3) 09/30/24 04:29
Triglycerides 178 mg/dl (10-149) H 09/21/24 05:02
LDL Cholesterol, Calc 101 mg/dl 09/21/24 05:02
VLDL Cholesterol, Calc 35 mg/dl (0-30) H 09/21/24 05:02
HDL Cholesterol 37 mg/dl 09/21/24 05:02
09/20/24
22:04
Lvm-S-Kswbpnpnkbq Pept 558
Physical Exam
Constitutional: No acute distress and Comfortable
EENT: Anicteric and Moist mucous membranes
Cardiovascular: Rhythm & rate is regular, Pedal edema is absent and JVD pressure is normal
Respiratory: Respiratory effort normal, Lungs clear to auscul. and Wheeze Absent
GI: Soft, Distention absent, Non tender and Normal bowel sounds
Neuro/Psych: Alert, Oriented and AO x 3
Data Reviewed
-
Date of Service: September 30, 2024
Medical Decision Making: Reviewed Test Results, Test Interpretation and Review of Case with other Provider
EKG: Tracing Personally Visualized and interpreted
Echo: Report Reviewed by me
Labs: Labs Reviewed by me
Old Records: Reviewed
--- NOTE | 2024-09-30 09:37 | PTCARENOTE ---
assumed care of pt from previous shift RN, sinus rhythm on tele, VSS, Surgical sites stable. Cordis and PIV flushing easily. plan of care reviewed and questions encouraged.
[2024-09-30] MEDS: NSS IV (11:38)
[2024-09-30] MEDS: LOPRESSOR 12.5 MG PO ×2 (11:38→19:51)
--- NOTE | 2024-09-30 12:18 | PTCARENOTE ---
cordis removed without incident.
[2024-09-30] MEDS: LIPITOR 40 MG PO (16:42)
[2024-09-30] MEDS: COUMADIN 1 MG PO (16:42)
[2024-09-30] MEDS: REMOVE LIDOCAINE PATCH REMOVE (19:52)
--- NOTE | 2024-09-30 20:00 | PTCARENOTE ---
assumed care of pt from previous RN. pt A&Ox4, resting in chair at time of assessment. SR on tele-monitor. POX 94% on RA. abd s/n, round, obese, +BS. voiding clear, yellow colored urine in bathroom. all surgical sites stable, CDI. PIV intact. see
worklist for complete nursing assessment, interventions, VS, and I&Os.
--- NOTE | 2024-10-01 | PTCARENOTE ---
assessment remains unchanged. VSS.
[2024-10-01 04:30] VITALS: BP 117/60
--- NOTE | 2024-10-01 04:45 | PTCARENOTE ---
no acute changes. VSS. AM labs collected and sent.
[2024-10-01 05:19] LABS: INR 1.84; PT 21.8 Sec (11.4-14.6)
[2024-10-01 05:23] LABS: Hematocrit 25.5 % (39.0-52.0); Hemoglobin 8.9 g/dL (13.0-18.0); Mean Corp Hgb Conc. 34.9 g/dL (33.0-37.0); Mean Corpuscular Volume 94.1 fL (80.0-94.0); Platelet Count 244 10^3/uL (130-400); Red Cell Dist. Width 13.1 % (11.5-14.5)
[2024-10-01 05:33] LABS: Blood Urea Nitrogen 16 mg/dl (9-20); Calcium 7.6 mg/dl (8.4-10.2); Carbon Dioxide 28 mmol/L (22-30); Chloride 103 mmol/L (98-107); Estimated Creatinine Clearance > 125 ml/min; Glucose 100 mg/dl (70-99); Magnesium 2.3 mg/dl (1.6-2.3); Potassium 4.0 mmol/L (3.5-5.1); Sodium 132 mmol/L (135-145); eGFR > 60.00
[2024-10-01 06:00] VITALS: BMI 37.0
[2024-10-01] MEDS: TYLENOL 1000 MG PO (06:03)
--- NOTE | 2024-10-01 06:43 | W.PN.CT ---
Today's Communication / Plan
-
-pod #4
-no issues overnight
-alternating rhythm overnight between accelerated junctional and nsr high 50s-60s. No significant kristie or pauses overnight. BB was restarted 09/30. Holding Amio. Has no pw
-on Coumadin for mechanical AVR. Got 5, 1, and 1 mg. INR today 1.84
-consider diuresis today
-follow 2v-CXR
-encourage IS, OOB
-possible d/c soon
Assessment / Plan
-
Severe/critical and Bicuspid AV s/p AVR (#21 On-X mechanical) on 09/27/[address] Ridley POD #4
Post-SHANNAN: normal biventricular function, well-seated AVR w/ PVL/AI (washing jets); mean gradients 11-14mmHg.
-Severe
-Non-obstructive CAD, per Cath 09/21/24
-Non CT troponin elevation
-LVEF 60-65%
-Hyperlipidemia
-Class 2 obesity (BMI 36.3)
-GERD
-Active tobacco use (3 cigs/day)
-Poor dentition
-ETOH use
-Transaminitis
-Acute postop blood loss anemia
-Acute postop atelectasis/pulmonary insufficiency
-Acute postop hypovolemia with subsequent hypervolemia
-Acute postop hyponatremia
Discussed patient care with: Nursing and Care Team
Subjective
Procedure
s/p AVR (#21 On-X mechanical) on 09/27/[address] Ridley
-
Date of Service: October 01, 2024
Objective Data
-
PT 25.7 Sec (11.4-14.6) H 09/30/24 04:29
INR 2.30 09/30/24 04:29
APTT 30.6 Sec (23.4-35.0) 09/27/24 12:57
Vital Signs
Vital Signs
Temp Pulse Resp BP Pulse Ox
98.2 F 66 16 113/62 100
09/30/24 23:29 09/30/24 23:35 09/30/24 23:29 09/30/24 23:35 09/30/24 23:35
CT Intake/Output/Weight
09/30/24 09/30/24 10/01/24
06:59 18:59 06:59
Intake Total 100 / 100
Output Total 200 / 2500
Balance -100 / -2400
SaO2: 100
Physical Exam
-
General: Awake and AOx3
Cardiovascular: Regular rate & rhythm, No Murmurs and No Rub
Respiratory: Rales (at bases. No wheeze) and Decreased Breath Sounds
Sternum: Stable
Incision: Clean, Dry and Intact
Extremities: Other (trace edema b/l)
Abdomen: soft, nontender, nondistended, +BM, + bowel sounds
Data Reviewed
-
Lab Results: Results Reviewed
Medications: Active Meds Reviewed
Chest X-Ray: Report Reviewed and Image Reviewed
ECG: Report Reviewed and Image Reviewed
[2024-10-01 08:06] VITALS: BP 115/63
[2024-10-01] MEDS: COLCHICINE 0.6 MG PO (08:07)
[2024-10-01] MEDS: BACTROBAN 2% OINTMENT 1 APPLIC NASAL (08:07)
[2024-10-01] MEDS: LOPRESSOR 12.5 MG PO (08:07)
[2024-10-01] MEDS: LOW STRENGTH ASPIRIN 81 MG PO (08:08)
[2024-10-01] MEDS: NEURONTIN 300 MG PO (08:08)
[2024-10-01] MEDS: PROTONIX 40 MG PO (08:08)
[2024-10-01] MEDS: MAGNESIUM OXIDE 500 MG PO (08:08)
[2024-10-01] MEDS: LIDOCAINE 4% PATCH TOPICAL (08:08)
[2024-10-01] MEDS: NSS IV (08:11)
[2024-10-01] MEDS: SENOKOT-S 1 TABLET PO (08:11)
[2024-10-01] MEDS: COUMADIN 2.5 MG PO (08:57)
--- NOTE | 2024-10-01 09:00 | PTCARENOTE ---
PT aaox3 w/o complaints of pain; junctional rhythm on the monitor, vss; RA 96% O2, clear lung sounds, walking hallways w/ standby assist; GI and wnl; all surgical incisions CDI; see worklist for detailed assessment
--- NOTE | 2024-10-01 11:33 | W.PN.CD ---
Today's Communication / Plan
-
- Stable for discharge
Impression / Plan
-
Severe aortic stenosis:
-now s/p mechanical AVR ( On-X mechanical), Dr. Ridley 09/27/24
-Stable and in sinus rhythm
-EF 50% on intra-op SHANNAN
-ASA and BB ordered post-op.
-Coumadin has been started. Dosing being directed by CT surgery
.
Syncope, in setting of severe aortic stenosis:
-surgery as above
-follow telemetry
-Junctional escape rhythm - Competing junctional with sinus
- Junctional rates are elevated
- Metoprolol 12.5 mg BID and amiodarone is tolerated well with no bradycardia or pauses.
- OK to discharge with Toprol 12.5 mg BID
Dyslipidemia:
-statin
-LDL goal <70
Smoking: smoking cessation has been reviewed
GERD: PPI
GI issues:
-GI is on the case
Physical Exam
Vital Signs/Labs
Vital Signs
Temp Pulse Resp BP Pulse Ox
98 F 69 16 115/63 96
10/01/24 08:00 10/01/24 10:00 10/01/24 08:00 10/01/24 08:06 10/01/24 09:00
09/30/24 10/01/24 10/02/24
06:59 06:59 06:59
Actual Weight 101.7 kg 100.8 kg
10/01/24 04:51
10/01/24 04:51
PT 21.8 Sec (11.4-14.6) H 10/01/24 04:51
INR 1.84 10/01/24 04:51
APTT 30.6 Sec (23.4-35.0) 09/27/24 12:57
Magnesium 2.3 mg/dl (1.6-2.3) 10/01/24 04:51
Triglycerides 178 mg/dl (10-149) H 09/21/24 05:02
LDL Cholesterol, Calc 101 mg/dl 09/21/24 05:02
VLDL Cholesterol, Calc 35 mg/dl (0-30) H 09/21/24 05:02
HDL Cholesterol 37 mg/dl 09/21/24 05:02
09/20/24
22:04
Flx-C-Mbgyercdzqh Pept 558
Physical Exam
Constitutional: No acute distress and Comfortable
EENT: Anicteric and Moist mucous membranes
Cardiovascular: Rhythm & rate is regular, Pedal edema is absent and JVD pressure is normal
Respiratory: Respiratory effort normal, Lungs clear to auscul. and Wheeze Absent
GI: Soft, Distention absent and Non tender
Neuro/Psych: Alert, Oriented and AO x 3
Other: Skin
Data Reviewed
-
Date of Service: October 01, 2024
Medical Decision Making: Reviewed Test Results, Test Interpretation and Review of Case with other Provider
EKG: Tracing Personally Visualized and interpreted
Echo: Report Reviewed by me
X-Ray/CT/US/MRI/NUC/PET: Image Personally Visualized and interpreted
Labs: Labs Reviewed by me
Old Records: Reviewed
[2024-10-01 13:28] LABS: INR 1.96; PT 22.8 Sec (11.4-14.6)
--- NOTE | 2024-10-01 13:42 | W.DCSUMMARY ---
Discharge Summary
Discharge Data
Date of Admission: 09/20/24
Date of Discharge: 10/01/24
Total time spent discharging patient (in min): 60
-
Pending Results: Yes
Additional Pending Results:
INR will be drawn tomorrow with results referred to his production posting clerk for further warfarin dosing
Hospital Course
Primary care physician: None
Outpatient production posting clerk: CASEY
Inpatient consultants: Cardiology
Procedures:
1. Status post aortic valve replacement with a 21 mm On�X mechanical prosthesis, 09/27/2024, Dr. Ridley
Primary Diagnosis:
1. Severe aortic stenosis secondary to bicuspid aortic valve
Secondary Diagnoses:
-Non-obstructive Coronary artery disease
-Hyperlipidemia
-Class 2 obesity (BMI 36.3)
-Gastroesophageal reflux disease
-Active tobacco use (3 cigs/day)
-Poor dentition
-Alcohol use
-Transaminitis
-Acute postop blood loss anemia
-Acute postop atelectasis/pulmonary insufficiency
-Acute postop hypovolemia with subsequent hypervolemia
-Acute postop hyponatremia
HPI: Patient seen and examined in the presence of his son Oleksandr, who acted as chocolate finisher.
54 y/o Yakut speaking male presented to ED via ambulance for evaluation of syncope. Pt was taking out the trash 2 nights ago and began to have pain in his chest which he attributed to heart burn. He does have a history of heartburn and frequently
uses an OTC medication. He tried taking Tums, without relief. He began to experience lightheadedness and had a syncopal episode. Did not hit his head, but was incontinent of urine. When he regained consciousness, he had complete recall of prior
events. He has not had any recurrence of chest pain since the initial episode. Pt reports increased fatigue for a few days prior to the incident, but thought it was due to the heat. He has not had prior episodes of chest pain. Denies fever, chills,
diaphoresis, cough, SOB, n/v.
In the ED, troponin was 0.094 (peaked at 1.98 yesterday morning). Echo showed EF 55-60% and severe aortic stenosis with suspected bicuspid valve. JARED 0.5cm2, with peak gradient 115mmHg and mean gradient 69mmHg. Mild aortic regurgitation. Cardiac
catheterization yesterday evening showed severe bicuspid aortic stenosis and no obstructive CAD.
Hospital course: Patient was admitted to the emergency department following a syncopal event. There was troponin elevation at the time however severe aortic stenosis secondary to bicuspid aortic valve was identified. Patient was evaluated by our
team and deemed appropriate surgical candidate for valve replacement. Patient has some tooth extractions as well as GI workup for transaminitis. He was ultimately cleared for surgery and underwent aortic valve replacement with a 21 mm On�X
mechanical valve by Dr. Ridley on 09/27/2024. Please refer to separately dictated operative report for complete details. Postoperatively patient was transferred to the ICU in stable condition. He was extubated per usual postop protocol at 1530 on
postop day 0. Vasoactive infusions were weaned off over the course of the evening.
Postoperative day #1: Invasive monitoring lines were removed. Insulin drip was weaned off per protocol. The patient was transferred to telemetry phase. Warfarin was beta-blockers were also started.
Postoperative day #2: Pacing wires were cut. Chest tubes were removed. Coumadin was again dosed. Colchicine was started for suspected postop pericarditis. Patient was noted to be in a junctional rhythm later in the day and beta-blockers and
amiodarone were held.
Postoperative day #3: After evaluation by cardiology was felt that beta-blockers could again be initiated. He did continue to have intermittent accelerated junctional rhythm however he remained completely stable. He was ambulating completely
independently. He was kept an additional day for rhythm monitoring.
Postoperative day #4: Patient will be discharged today to home. He was given 2.5 mg of Coumadin today with slow rise in his INR to just under 2 prior to discharge. He will have an INR drawn tomorrow by home health nursing and referred to his
production posting clerk for further Coumadin management. I will discharge him with 2 mg Coumadin tablets for further dosing. Goal INR is 2.0-3.0 for the first 3 months and then 1.5-2.0 thereafter.
I reviewed discharge instructions extensively with the patient and his family prior to him leaving today. I answered his questions to his satisfaction.
Home medication changes: The patient was not taking any medications prior to admission. He will be discharged on aspirin 81 mg as well as warfarin for his mechanical valve. He will be started on Lipitor 40 mg daily for secondary prevention given
his nonobstructive coronary disease. He will be given a 1 month supply of colchicine for his postop pericarditis. He was given 12.5 mg twice daily of metoprolol tartate and this can be further titrated in the outpatient setting. He was also given
a short 1 week supply of oxycodone for pain control.
Discharge Plan
-
Patient Disposition: Home (Routine Discharge)
Discharge Diagnosis/Procedures: Status post aortic valve replacement with a 21 mm On�X mechanical prosthesis, 09/27/2024, Dr. Ridley
Post-SHANNAN: normal biventricular function, well-seated AVR w/ PVL/AI (washing jets); mean gradients 11-14mmHg.
-Severe Aortic stenosis
-Non-obstructive Coronary artery disease
-Hyperlipidemia
-Class 2 obesity (BMI 36.3)
-Gastroesophageal reflux disease
-Active tobacco use (3 cigs/day)
-Poor dentition
-Alcohol use
-Transaminitis
-Acute postop blood loss anemia
-Acute postop atelectasis/pulmonary insufficiency
-Acute postop hypovolemia with subsequent hypervolemia
-Acute postop hyponatremia
Condition: Fair
Diet: Regular
Activity: No strenuous activity
Driving Restrictions: Not until seen by your Dr
Bathing Restrictions: OK to Shower
Blood Work: Please have INR drawn on Wednesday10/02/24 by home health nursing
Other Services: Cardiac Rehab
Specialty Instructions: Weigh Daily- Call MD for wt gain/loss 3 lbs overnight/5 lbs in 1 week
Activity Restrictions/Additional Instructions:
ACTIVITY:
-No strenuous activity: no heavy lifting, pushing, pulling anything over 15 pounds for one month
-continue to use stairs as tolerated
DRIVING RESTRICTIONS:
-No driving for one month or until approved by your surgeon
WOUND CARE:
-Shower daily. Use soap & water.
-No lotions, creams or powders on incision area.
DIET:
-continue a low fat/low cholesterol diet.
-IF you are diabetic, continue carb controlled diet.
CARDIAC REHAB:
-Please make appointment to start in 5-6 weeks with your local hospital program. (See Cardiac Rehabilitation Discharge Booklet).
SPECIALTY INSTRUCTIONS:
-Weigh yourself daily. Call your physician for any weight gain/loss of 3 lbs overnight or 5 lbs in one week.
-REPORT any clicking noise or uneven appearance of your sternum to your surgeon immediately.
-If you smoke, you are instructed to quit. The [place] smoking hotline phone number is [phone]
Referrals:
CT Transitional Care Nurse [Outside]
Referral Note: The Cardiothoracic Transitional Care Nurse will call you to set up a visit in 1-2 days.
[facility]. Cardiac Rehab [Outside] - 11/09/24 11:30 am
Referral Note: Cardiac Rehab Orientation appointment is on November 09 at 11:30am.
The Cardiac Rehab gym is located on the first floor of the [facility].
Keesha Vasques CRNP [Specified Professional Personl, Cardiology] - 11/16/24 10:00 am
Maxwell Ridley MD [Active, Cardiac Surgery] - 10/24/24 2:00 pm
UNKNOWN - PT DOES,NOT KNOW [Family Provider]
Prescriptions:
New
aspirin 81 mg Tablet,Chewable
81 mg PO DAILY Qty: 0 0RF
colchicine 0.6 mg Tablet
0.6 mg PO DAILY 30 Days Qty: 30 0RF
oxycodone 5 mg Tablet
5 mg PO Q4HPRN PRN (Reason: moderate pain) 7 Days Qty: 28 0RF
metoprolol tartrate 25 mg Tablet
12.5 mg PO Q12 Qty: 30 2RF
warfarin 2 mg tablet
See Rx Instructions .ROUTE .COMPLEX Qty: 30 0RF
Rx Instructions:
Take as directed by monitoring physician
atorvastatin 40 mg Tablet
40 mg PO QPM Qty: 30 2RF
Continued
Vitamin
1 dose PO DAILY PRN (Reason: supplement)
Rx Instructions:
unsure of name
Discharge Orders:
Discharge Patient (As Directed); Ordered 10/01/24
Ordered By: Amari Villagran
Care Plan Goals
Care Plan Goals:
Problem: Readiness for enhanced knowledge related to diagnosis and treatment plan
Goal: Understand your diagnosis and treatment plan needs, including medications if applicable.
Instructions: Know your diagnosis, underlying causes and treatment plan options, including medications if applicable. Consult with your health care team to learn about your diagnosis and treatment plan, including medications if applicable.
Discharge Date and Time
Print Language: ANDORRAN
[2024-10-01] MEDS: TYLENOL PO (14:13)
[2024-10-01 14:26] VITALS: BP 144/64
[2024-10-01 14:33] VITALS: BP 126/65
--- NOTE | 2024-10-01 14:52 | PTCARENOTE ---
PT discharged; Vitals taken VSS; reviewed all discharge instructions; medications & appointments with Son & Patient; verbalized understanding. IV removed; tele pack removed; PT dresswed and escorted by wheelchair to awaiting vehicle.
== END 2024-10-01 14:55 | disposition home or self-care (01) | DRG 216 ==
LOC: CVICU 23:18
PROVIDERS: Anesthesiology; Dentist Oral and Maxillofacial Surgery; Hospitalist; Internal Medicine; Internal Medicine Interventional Cardiology; Nurse Practitioner; Physician Assistant Medical; Registered Nurse; ADMITTING PHYSICIAN Hospitalist; ATTENDING PHYSICIAN Thoracic Surgery (Cardiothoracic Vascular Surgery); CONSULT PHYSICIAN Internal Medicine Critical Care Medicine; CONSULT PHYSICIAN Internal Medicine Gastroenterology; EMERGENCY PHYSICIAN Emergency Medicine; OTHER PHYSICIAN Internal Medicine Cardiovascular Disease
PROC: B2151ZZ Fluoroscopy of Left Heart using Low Osmolar Contrast (ICD-10-PCS; 2024-09-21)
PROC: B2111ZZ Fluoroscopy of Multiple Coronary Arteries using Low Osmolar Contrast (ICD-10-PCS; 2024-09-21)
PROC: 4A023N7 Measurement of Cardiac Sampling and Pressure, Left Heart, Percutaneous Approach (ICD-10-PCS; 2024-09-21)
PROC: 0CDWXZ0 Extraction of Upper Tooth, Single, External Approach (ICD-10-PCS; 2024-09-26)
PROC: B24BZZ4 Ultrasonography of Heart with Aorta, Transesophageal (ICD-10-PCS; 2024-09-27)
PROC: 02RF0JZ Replacement of Aortic Valve with Synthetic Substitute, Open Approach (ICD-10-PCS; 2024-09-27)
PROC: 5A1221Z Performance of Cardiac Output, Continuous (ICD-10-PCS; 2024-09-27)
DX: I35.0 Nonrheumatic aortic (valve) stenosis (principal); J95.1 Acute pulmonary insufficiency following thoracic surgery; D62 Acute posthemorrhagic anemia; E87.1 Hypo-osmolality and hyponatremia; J98.11 Atelectasis; I31.9 Disease of pericardium, unspecified; I5A Non-ischemic myocardial injury (non-traumatic); K02.9 Dental caries, unspecified; I25.10 Atherosclerotic heart disease of native coronary artery without angina pectoris; K76.0 Fatty (change of) liver, not elsewhere classified; K21.9 Gastro-esophageal reflux disease without esophagitis; F17.210 Nicotine dependence, cigarettes, uncomplicated; M19.011 Primary osteoarthritis, right shoulder; F10.10 Alcohol abuse, uncomplicated; E78.00 Pure hypercholesterolemia, unspecified; Q23.81 Bicuspid aortic valve; R73.9 Hyperglycemia, unspecified; D18.03 Hemangioma of intra-abdominal structures; E66.812 Obesity, class 2; E86.1 Hypovolemia; E87.70 Fluid overload, unspecified; Y83.1 Surgical operation with implant of artificial internal device as the cause of abnormal reaction of the patient, or of later complication, without mention of misadventure at the time of the procedure; Z68.36 Body mass index [BMI] 36.0-36.9, adult; Z82.49 Family history of ischemic heart disease and other diseases of the circulatory system
CPT/HCPCS: 36600; 70355; 71045; 71046; 74183; 75572; 80048; 80053; 80061; 81003; 81015; 82105; 82248; 82330; 82378; 82565; 82805; 82810; 82947; 82962; 83036; 83735; 83880; 84132; 84302; 84484; 84520; 85014; 85018; 85025; 85027; 85049; 85610; 85730; 86301; 86705; 86706; 86709; 86803; 86850; 86900; 86901; 86920; 87340; 88305; 88311; 93005; 93306; 93312; 93320; 93325; 93454; 93880; 94002; 94010; 99152; 99153; 99285; 99406; A9581; C1894; Q9967

== ENCOUNTER → 2024-10-06 10:25 | Outpatient (REF) | payer OTHER, SELFPAY ==
[2024-10-06 12:08] LABS: INR 1.57; PT 19.0 Sec (11.4-14.6)
== END ==
LOC: REG 10:25
PROVIDERS: ATTENDING PHYSICIAN Internal Medicine Cardiovascular Disease
DX: Z95.2 Presence of prosthetic heart valve (principal)
CPT/HCPCS: 36415; 85610

== ENCOUNTER → 2024-10-10 11:20 | Outpatient (REF) | payer OTHER, SELFPAY ==
[2024-10-10 12:22] LABS: INR 1.81; PT 21.1 Sec (11.4-14.6)
== END ==
LOC: REG 11:20
PROVIDERS: ATTENDING PHYSICIAN Internal Medicine Cardiovascular Disease
DX: Z95.2 Presence of prosthetic heart valve (principal)
CPT/HCPCS: 36415; 85610

== ENCOUNTER → 2024-10-17 11:13 | Outpatient (REF) | payer OTHER, SELFPAY ==
[2024-10-17 12:40] LABS: INR 1.70; PT 20.2 Sec (11.4-14.6)
== END ==
LOC: CLINIC 11:13
PROVIDERS: ATTENDING PHYSICIAN Internal Medicine Cardiovascular Disease
DX: Z95.2 Presence of prosthetic heart valve (principal)
CPT/HCPCS: 36415; 85610

== ENCOUNTER → 2024-10-23 09:53 | Outpatient (REF) | payer OTHER, SELFPAY ==
[2024-10-23 11:01] LABS: INR 2.29; PT 25.3 Sec (11.4-14.6)
== END ==
LOC: REG 09:53
PROVIDERS: ATTENDING PHYSICIAN Internal Medicine Cardiovascular Disease
DX: Z95.2 Presence of prosthetic heart valve (principal)
CPT/HCPCS: 36415; 85610

== ENCOUNTER → 2024-10-30 09:10 | Outpatient (REF) | payer MEDICAID, SELFPAY ==
[2024-10-30 11:10] LABS: INR 2.57; PT 27.6 Sec (11.4-14.6)
== END ==
LOC: REG 09:10
PROVIDERS: ATTENDING PHYSICIAN Internal Medicine Cardiovascular Disease
DX: Z95.2 Presence of prosthetic heart valve (principal)
CPT/HCPCS: 36415; 85610

== ENCOUNTER → 2024-11-07 09:39 | Outpatient (REF) | payer MEDICAID, SELFPAY ==
[2024-11-07 10:47] LABS: INR 2.66; PT 28.3 Sec (11.4-14.6)
== END ==
LOC: REG 09:39
PROVIDERS: ATTENDING PHYSICIAN Internal Medicine Cardiovascular Disease
DX: Z95.2 Presence of prosthetic heart valve (principal)
CPT/HCPCS: 36415; 85610